=== PATIENT | female | born 1940 | race Caucasian/White ===

== ENCOUNTER 2021-01-23 11:46 | Inpatient (IN) | payer MEDICARE, SELFPAY ==
[2021-01-23] VITALS (11 sets, daily range): BP systolic 117–173; BP diastolic 53–108; PULSE 46–90; RESP 18–24; TEMP 36.7–39.6; O2SAT 88–95; BMI 27.8
--- NOTE | 2021-01-23 13:28 | XRR_ITS ---
PROCEDURE INFORMATION: Exam: XR Chest Exam date and time: 01/23/2021 1:28 PM Age: 80 years old Clinical indication: Cough and fever and other: Reduced breath sounds, hypoxia; Additional info: Reduced breath sounds, hypoxia, possible covid TECHNIQUE: Imaging protocol: XR of the chest. Views: 1 view. COMPARISON: No relevant prior studies available. FINDINGS: Lungs: Right basilar consolidation. Lungs are hyperinflated. Pleural spaces: Unremarkable. No pleural effusion. No pneumothorax. Heart/Mediastinum: Unremarkable. No cardiomegaly. Bones/joints: Unremarkable. XR/XR chest 1V portable [id number] IMPRESSION: Right basilar consolidation suspicious for pneumonia.
--- NOTE | 2021-01-23 14:01 | ECG_ITS ---
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 Measurements Intervals [place] Rate: 87 P: 52 MO: 171 QRS: -22 QRSD: 76 T: 57 QT: 333 QTc: 402 Interpretive Statements SINUS RHYTHM WITH FREQUENT SUPRAVENTRICULAR PREMATURE COMPLEXES BORDERLINE LEFT AXIS DEVIATION [QRS AXIS < -20] LOW QRS VOLTAGE IN PRECORDIAL LEADS [QRS DEFLECTION < 1.0 mV IN CHEST LEADS] No previous ECG available for comparison Electronically Signed On 01-23-2021 16:41:42 CDT by Luz Marina Hayes M.D. [id number]
[2021-01-23] MEDS: acetaminophen 325 mg Tablet 1000 MG PO (14:07)
[2021-01-23] MEDS: albuterol 8 gm MDI 2 PUFF INHALATION (14:14)
[2021-01-23 14:25] LABS: Basophils % 0.1 %; Hematocrit 42.7 % (37.0-47.0); Hemoglobin 13.7 g/dL (11.5-15.3); Lymphocytes # 0.7 10^3/uL (0.8-4.8); Lymphocytes % 8.3 %; Mean Corpuscular HGB Conc 32.1 g/dL (30.0-36.0); Mean Corpuscular Hemoglobin 29.9 pg (28.0-34.0); Mean Corpuscular Volume 93.2 fL (81-99); Mean Platelet Volume 10.3 fL (7.4-10.4); Monocytes # 0.7 10^3/uL (0.2-0.9); Monocytes % 8.3 %; Neutrophils # 6.87 10^3/uL (1.8-7.7); Neutrophils % 82.9 %; Nucleated Red Blood Cells % 0 %; Platelet Count 129 10^3/cmm (130-400); Red Blood Count 4.58 10^6/uL (4.1-5.3); Red Cell Distribution Width 13.5 % (12.1-15.1); White Blood Count 8.3 10^3/uL (4.0-10.0)
[2021-01-23 14:31] LABS: ABG PCO2 36.5 mmHg (35-45); ABG PH Result 7.51 (7.35-7.45); Alveolar-Arterial Oxygen Gradi 7.3 mmHg (5-10); Arterial Blood Gas Hematocrit 43.3 % (37-47); Base Excess ABG 5.7 mmol/L (-2.0-2.0); Blood Gas Allen Test Pos; Blood Gas Operator Identificat GD; Blood Gas Sample Site Radial, left; Blood Gas Sample Type Arterial; Carboxyhemoglobin 1.1 %THgb (0.4-20.1); HCO3 ABG 28.9 mmol/L (22-26); Ionized Calcium Level - ABG 1.2 mmol/L (1.1-1.4); Methemoglobin 1.1 % (0.4-1.5); Oxygen Device ROOM AIR; PO2 ABG 49.1 mmHg (80.0-100.0); Potassium Level - ABG 3.8 mmol/L (3.5-5.0); Total Hemoglobin 14.1 g/dL (12-16)
[2021-01-23 14:40] LABS: Lactic Sepsis W/Reflex 1.7 mmol/L (0.5-2.2)
[2021-01-23 14:40] LABS: Influenza A by IFA Negative (Negative); Influenza B by IFA Negative (Negative); SARS Covid-2 Antigen Positive (Negative)
[2021-01-23 14:43] LABS: Troponin(5th) Baseline 30 ng/L (0-10)
[2021-01-23 14:45] LABS: Slide Review Slide Review Perform
[2021-01-23 14:46] LABS: Bilirubin Urine 1+ (Negative); Blood Urine 3+ (Negative); Glucose Urine UA Norm (Normal); Ketones Urine 1+ (Negative); Leukocyte Esterase Urine Trace (Negative); Nitrate Urine Positive (Negative); Protein Urine 2+ (Negative); Specific Gravity, Urine 1.015 (1.005-1.030); Urine Appearance SL Hazy (CLEAR); Urine Color Yellow (Yellow); Urobilinogen Urine 1 mg/dL (Negative); pH Urine 5 (5-7)
[2021-01-23 14:47] LABS: Squamous Epithelial Cell Urine 0-4 /hpf (0-5); WBC Urine 0-4 /hpf (0-5)
[2021-01-23 14:48] LABS: Add Urine Culture? Yes; Bacteria Urine 3+ /hpf
[2021-01-23 14:51] LABS: Alanine Aminotransferase 11 U/L (0-33); Albumin Level 3.8 g/dL (3.5-5.2); Alkaline Phosphatase 59 IU/L (35-105); Blood Urea Nitrogen 15 mg/dL (8-23); C Reactive Protein 55.5 mg/L (0.0-4.9); Calcium 8.5 mg/dL (8.5-10.5); Carbon Dioxide 28 mmol/L (22-29); Chloride 97 mmol/L (98-107); Globulin 2.7 g/dL (1.3-4.6); Glucose 128 mg/dL (65-115); NT Pro B Type Natriuretic Pept 1061 pg/mL (0-450); Osmolality Calculated 286 mOsm/kg (285-295); Sodium 137 mmol/L (136-145); Total Bilirubin 0.7 mg/dL (0.15-1.2); Total Protein 6.5 g/dL (6.6-8.7)
[2021-01-23 14:53] LABS: Anion Gap 16.2 (5-19); Aspartate Amino Transferase 26 U/L (0-32); Potassium 4.2 mmol/L (3.5-5.1)
[2021-01-23 15:00] LABS: D Dimer 2.72 ug/mIFEU (0-0.59)
--- NOTE | 2021-01-23 15:12 | CTR_ITS ---
PROCEDURE INFORMATION: Exam: CTA Chest With Contrast Exam date and time: 01/23/2021 3:12 PM Age: 80 years old Clinical indication: Cough and shortness of breath; Additional info: Covid +. Pe? TECHNIQUE: Imaging protocol: Computed tomographic angiography of the chest with contrast. 3D rendering (Not supervised by radiologist): MIP and/or 3D reconstructed images were created by the technologist. Radiation optimization: All CT scans at this facility use at least one of these dose optimization techniques: automated exposure control; mA and/or kV adjustment per patient size (includes targeted exams where dose is matched to clinical indication); or iterative reconstruction. Contrast material: VISI 320; Contrast volume: 85 ml; Contrast route: INTRAVENOUS (IV); COMPARISON: CR XR chest 1V portable [id number] 01/23/2021 2:06 PM RADIATION DOSE METRICS: Total DLP (mGy-cm): 652.91 FINDINGS: Pulmonary arteries: Enlargement of the main pulmonary arteries measuring up to 3.2 cm bilaterally. Aorta: Unremarkable. No aortic aneurysm. No aortic dissection. Lungs: Patulous right basilar consolidation with air bronchograms. Subtle patulous ground-glass opacities in the right upper lobe. Peripheral pulmonary micro nodules scattered throughout the lungs suggestive of small airway infectious/inflammatory process. Pleural spaces: Unremarkable. No pneumothorax. No pleural effusion. Heart: Borderline cardiomegaly. Lymph nodes: Unremarkable. No enlarged lymph nodes. Bones/joints: Generalized osseous demineralization. Mild scoliosis of the lower thoracolumbar spine with associated degenerative changes. No acute fracture. Soft tissues: Partially visualized upper abdominal rectus diastasis/ventral hernia. CT/CT angio chest PE protcl [id number] IMPRESSION: 1. Negative for pulmonary embolism. Dilated main pulmonary arteries which while non-specific may be indicative of pulmonary hypertension. 2. Patulous right basilar consolidation consistent with COVID pneumonia. Radiation Dose CTDIVOL = (mGy): DLP = 652.91 (mGy-cm)
--- NOTE | 2021-01-23 16:01 | ECG_ITS ---
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 Measurements Intervals [place] Rate: 70 P: 39 SD: 163 QRS: -15 QRSD: 85 T: 46 QT: 384 QTc: 414 Interpretive Statements SINUS RHYTHM LOW QRS VOLTAGE IN PRECORDIAL LEADS [QRS DEFLECTION < 1.0 mV IN CHEST LEADS] Compared to ECG 01/23/2021 14:29:52 No significant changes Electronically Signed On 01-23-2021 16:46:22 CDT by Luz Marina Hayes M.D. [id number]
[2021-01-23] MEDS: dexamethasone 4 mg/mL INJ 6 MG IVP (16:17)
[2021-01-23] MEDS: levofloxacin-dextrose 5 % 750 MG/150 ML PREMIX 100 MG IV (16:17)
[2021-01-23 16:56] LABS: Troponin 5 2HR 32.45 ng/L (0-10); Troponin 5 2HR Delta 2.45 ABS# (0-10)
--- NOTE | 2021-01-23 16:58 | W.ED.COVID ---
HPI - COVID General: Chief Complaint: Fever Stated Complaint: cough, trouble breathing, fever Time Seen by Provider: 01/23/21 13:26 Triage information: Has fever, cough or shortness of breath. Exposure to COVID + person last 14 days History of Present Illness: HPI Narrative: The patient is a 80-year-old female who comes to the ER complaining of cough, fever, weakness and confusion. Multiple Covid positive family members. Symptoms started 4 days ago. She is satting in the upper 80s on room air and has a fever of 103.2 with slightly increased work of breathing on arrival. She is complaining of Covid symptoms. MD complaint: reported COVID exposure and has COVID symptoms COVID 19 common symptoms: positive fever(s), chills, cough, productive cough, dyspnea, fatigue, body aches, headache(s) and nausea; negative throat pain or nasal congestion COVID 19 other sytmptoms: positive requiring oxygen; negative chest pain COVID Results: SARS-CoV-2 Antigen (Rapid) Positive (Negative) H 01/23/21 13:46 01/23/21 Review of Systems General: Reports: 10 or more systems reviewed and unremarkable except in HPI and below Const: Reports: fever(s), chills, body aches and fatigue Eyes: Denies: change in vision, blurry vision or eye redness ENMT: Denies: throat pain, swelling of lips/tongue, ear or mastoid pain or nasal congestion Card: Denies: chest pain, palpitations, irregular heart rhythm, edema, dyspnea on exertion or orthopnea Resp: Reports: dyspnea and productive cough GI: Reports: nausea : Denies: flank pain, difficulty voiding, urinary frequency or urinary urgency Musc: Denies: neck pain, back pain, extremity pain, joint pain, joint redness, limited range of motion or muscle weakness Skin/Breast: Denies: rash, pruritus, erythema, skin pain or skin tenderness Neuro: Reports: headache(s) Psych: Denies: anxiety or depression Endo: Denies: polyuria All/Imm: Denies: urticaria, throat swelling or tongue swelling PFSH ED PFSH: Medical History Essential hypertension Incontinence Surgical History H/O knee surgery Family History Sister Alzheimer disease Father Heart disease Daughter Thyroid condition Social History (Updated 01/23/21 @ 18:26 by Alexsander Addison MD) Smoking and tobacco status: never smoked Alcohol intake: never Household members: family Marital status: / Current occupational status: retired Physical Exam Const: COMMON NORMALS: no acute distress, average body habitus, patient oriented x3, no limitations, healthy appearing, alert and well nourished GENERAL APPEARANCE: cooperative, comfortable, well kempt and well developed ORIENTATION/CONSCIOUSNESS: Yes awake, Yes oriented to person, Yes oriented to place and Yes oriented to time HENMT: COMMON NORMALS: normocephalic, external ears normal and Normal external nose present HEAD & SCALP: normal to inspection and normocephalic NOSE: Normal external nose present EXTERNAL EAR: Yes external ears normal MOUTH: Normal oral and palatal mucosa present THROAT: posterior oropharynx normal Eye: COMMON NORMALS: Equal, round and reactive pupils present and EOMs intact bilaterally GENERAL EYE: appearance normal, both eyes and all related structures PUPIL: Yes Equal, round and reactive pupils present Neck/C-Spine: COMMON NORMALS: full ROM, no lymphadenopathy, no meningeal signs and no JVD GENERAL: Yes normal visual inspection Lymph: LYMPHATIC: no lymphadenopathy noted Chest: COMMONS NORMALS: normal inspection of the chest and normal palpation of entire chest wall Resp: COMMON NORMALS: No retractions EFFORT & INSPECTION: Yes able to speak in complete sentences, Yes tachypneic and Yes uses accessory muscles AUSCULTATION: rhonchi right lower, wheezes and diminished lung sounds Cardio: COMMON NORMALS: no JVD, regular rate, regular rhythm, S1 normal heart sound present, S2 normal heart sound present and Peripheral pulses 2+ throughout RATE: regular rate RHYTHM: regular rhythm HEART SOUNDS: S1 normal heart sound present and S2 normal heart sound present PERIPHERAL PULSES: Peripheral pulses 2+ throughout GI: COMMON NORMALS: Normal to inspection, nondistended, normoactive bowel sounds present, Soft to palpation, non-tender and no masses INSPECTION: Yes normal to inspection PALPATION: Yes Soft to palpation : COMMON NORMALS: Yes no CVA tenderness BLADDER/KIDNEY EXAM: Yes no CVA tenderness Back/Pelvis: COMMON NORMALS: no CVA tenderness, thoracic and lumbar spine normal to inspection, no thoracic nor lumbar tenderness and thoraco-lumbar ROM normal Extremity: COMMON NORMALS: normal to inspection, full ROM, capillary refill normal, no joint enlargement and no pedal edema GENERAL: Yes normal exam except as noted Neuro: COMMON NORMALS: patient oriented x3, CN's II-XII intact bilaterally, moves all extremities, no focal motor deficits, no sensory deficits noted and gait normal SENSORIUM/ORIENTATION: Yes alert, Yes oriented to person, Yes oriented to place and Yes oriented to time MENINGEAL SIGNS: Yes no meningeal signs Psych: COMMON NORMALS: mental status grossly normal, Normal thought process present, cooperative, normal affect and speech normal APPEARANCE: Yes well kempt ATTITUDE: Yes calm SPEECH: Yes normal speech THOUGHT PROCESS: Normal thought process present Skin: COMMON NORMALS: no rashes or lesions noted GENERAL SKIN EXAM: no rashes or lesions noted Course Vital Signs: Vital signs: Vital Signs Temperature 98.0 F 01/23/21 21:00 Pulse Rate 68 01/23/21 21:19 Respiratory Rate 22 H 01/23/21 21:19 Blood Pressure 146/80 01/23/21 21:19 Pulse Oximetry 95 01/23/21 21:19 MDM - COVID MDM Narrative: Medical decision making narrative: The patient is an 80-year-old female who comes to the ER with Covid symptoms. She is did swab positive today for coronavirus. She has slightly increased work of breathing with reduced breath sounds, wheezes, and rhonchi in the right lower lobe. She is requiring 3 L oxygen to saturate in the 90s. She was satting in the upper 80s on room air on arrival.. CTA is negative for PE but does show right basilar Covid pneumonia. Discussed with Dr. Addison who accepts for admission. Lab Data: Labs: Lab Results 01/23/21 01/23/21 01/23/21 Range/Units 13:45 13:46 13:46 WBC (4.0-10.0) 10^3/ uL RBC (4.1-5.3) 10^6/u L Hgb (11.5-15.3) g/dL Hct (37.0-47.0) % MCV (81-99) fL MCH (28.0-34.0) pg MCHC (30.0-36.0) g/dL RDW (12.1-15.1) % Plt Count (130-400) 10^3/c mm MPV (7.4-10.4) fL Neut % (Auto) % Lymph % (Auto) % [place] % (Auto) % Eos % (Auto) % Baso % (Auto) % Neut # (Auto) (1.8-7.7) 10^3/u L Lymph # (Auto) (0.8-4.8) 10^3/u L [place] # (Auto) (0.2-0.9) 10^3/u L Eos # (Auto) (0.0-0.8) 10^3/u L Baso # (Auto) (0.0-0.1) 10^3/u L Nucleated RBC % (a uto) % Nucleated RBCs # /100WBC D-Dimer (0-0.59) ug/mIFE U Specimen Type Sample Site ABG pH (7.35-7.45) ABG pCO2 (35-45) mmHg ABG pO2 (80.0-100.0) mmH g ABG HCO3 (22-26) mmol/L ABG O2 Saturation ABG Base Excess (-2.0-2.0) mmol/ L Lio Test A-a O2 Gradient (5-10) mmHg Hematocrit (37-47) % Hgb O2 Saturation (95-100) % Carboxyhemoglobin (0.4-20.1) %THgb Methemoglobin (0.4-1.5) % Total Hemoglobin (12-16) g/dL Ionized Calcium (1.1-1.4) mmol/L O2 Delivery Device Bee Raiser ID Sodium (136-145) mmol/L Potassium (3.5-5.1) mmol/L Chloride (98-107) mmol/L Carbon Dioxide (22-29) mmol/L Anion Gap (5-19) BUN (8-23) mg/dL Creatinine (0.5-0.9) mg/dL GFR Calculation Glucose (65-115) mg/dL Calculated Osmolal ity (285-295) mOsm/k g Lactic Acid (0.5-2.2) mmol/L Calcium (8.5-10.5) mg/dL Total Bilirubin (0.15-1.2) mg/dL AST (0-32) U/L ALT (0-33) U/L Alkaline Phosphata se (35-105) IU/L Troponin T Baselin e (0-10) ng/L Troponin T 120 Min [place] (0-10) ng/L Delta Troponin T (0-10) ABS# C-Reactive Protein (0.0-4.9) mg/L NT-Pro-B Natriuret Pep (0-450) pg/mL Total Protein (6.6-8.7) g/dL Albumin (3.5-5.2) g/dL Globulin (1.3-4.6) g/dL Urine Color Yellow (Yellow) Urine Appearance Sl hazy (CLEAR) Urine pH 5 (5-7) Ur Specific Gravit y 1.015 (1.005-1.030) Urine Protein 2+ H (Negative) Urine Glucose (UA) Norm (Normal) Urine Ketones 1+ H (Negative) Urine Blood 3+ H (Negative) Urine Nitrate Positive H (Negative) Urine Bilirubin 1+ H (Negative) Urine Urobilinogen 1 H (Negative) mg/dL Ur Leukocyte Darleen ase Trace H (Negative) Urine RBC 5-10 H (0-2) /hpf Urine WBC 0-4 H (0-5) /hpf Ur Squamous Epith Cells 0-4 H (0-5) /hpf Amorphous Sediment Not Reportable Urine Bacteria 3+ H (NONE) /hpf Influenza Type A A g Negative (Negative) Influenza Type B A g Negative (Negative) SARS-CoV-2 Ag (Rap id) Positive H (Negative) 01/23/21 01/23/21 01/23/21 Range/Units 14:00 14:00 14:00 WBC 8.3 (4.0-10.0) 10^3/ uL RBC 4.58 (4.1-5.3) 10^6/u L Hgb 13.7 (11.5-15.3) g/dL Hct 42.7 (37.0-47.0) % MCV 93.2 (81-99) fL MCH 29.9 (28.0-34.0) pg MCHC 32.1 (30.0-36.0) g/dL RDW 13.5 (12.1-15.1) % Plt Count 129 L (130-400) 10^3/c mm MPV 10.3 (7.4-10.4) fL Neut % (Auto) 82.9 % Lymph % (Auto) 8.3 % [place] % (Auto) 8.3 % Eos % (Auto) 0.0 % Baso % (Auto) 0.1 % Neut # (Auto) 6.87 (1.8-7.7) 10^3/u L Lymph # (Auto) 0.7 L (0.8-4.8) 10^3/u L [place] # (Auto) 0.7 (0.2-0.9) 10^3/u L Eos # (Auto) 0.0 (0.0-0.8) 10^3/u L Baso # (Auto) 0.0 (0.0-0.1) 10^3/u L Nucleated RBC % (a uto) 0 % Nucleated RBCs # 0.0 /100WBC D-Dimer 2.72 H (0-0.59) ug/mIFE U Specimen Type Sample Site ABG pH (7.35-7.45) ABG pCO2 (35-45) mmHg ABG pO2 (80.0-100.0) mmH g ABG HCO3 (22-26) mmol/L ABG O2 Saturation ABG Base Excess (-2.0-2.0) mmol/ L Lio Test A-a O2 Gradient (5-10) mmHg Hematocrit (37-47) % Hgb O2 Saturation (95-100) % Carboxyhemoglobin (0.4-20.1) %THgb Methemoglobin (0.4-1.5) % Total Hemoglobin (12-16) g/dL Ionized Calcium (1.1-1.4) mmol/L O2 Delivery Device Bee Raiser ID Sodium 137 (136-145) mmol/L Potassium 4.2 (3.5-5.1) mmol/L Chloride 97 L (98-107) mmol/L Carbon Dioxide 28 (22-29) mmol/L Anion Gap 16.2 (5-19) BUN 15 (8-23) mg/dL Creatinine 1.0 H (0.5-0.9) mg/dL GFR Calculation Not Reportable Glucose 128 H (65-115) mg/dL Calculated Osmolal ity 286 (285-295) mOsm/k g Lactic Acid (0.5-2.2) mmol/L Calcium 8.5 (8.5-10.5) mg/dL Total Bilirubin 0.7 (0.15-1.2) mg/dL AST 26 (0-32) U/L ALT 11 (0-33) U/L Alkaline Phosphata se 59 (35-105) IU/L Troponin T Baselin e (0-10) ng/L Troponin T 120 Min [place] (0-10) ng/L Delta Troponin T (0-10) ABS# C-Reactive Protein 55.5 H (0.0-4.9) mg/L NT-Pro-B Natriuret Pep 1061 H (0-450) pg/mL Total Protein 6.5 L (6.6-8.7) g/dL Albumin 3.8 (3.5-5.2) g/dL Globulin 2.7 (1.3-4.6) g/dL Urine Color (Yellow) Urine Appearance (CLEAR) Urine pH (5-7) Ur Specific Gravit y (1.005-1.030) Urine Protein (Negative) Urine Glucose (UA) (Normal) Urine Ketones (Negative) Urine Blood (Negative) Urine Nitrate (Negative) Urine Bilirubin (Negative) Urine Urobilinogen (Negative) mg/dL Ur Leukocyte Darleen ase (Negative) Urine RBC (0-2) /hpf Urine WBC (0-5) /hpf Ur Squamous Epith Cells (0-5) /hpf Amorphous Sediment Urine Bacteria (NONE) /hpf Influenza Type A A g (Negative) Influenza Type B A g (Negative) SARS-CoV-2 Ag (Rap id) (Negative) 01/23/21 01/23/21 01/23/21 Range/Units 14:00 14:00 14:10 WBC (4.0-10.0) 10^3/ uL RBC (4.1-5.3) 10^6/u L Hgb (11.5-15.3) g/dL Hct (37.0-47.0) % MCV (81-99) fL MCH (28.0-34.0) pg MCHC (30.0-36.0) g/dL RDW (12.1-15.1) % Plt Count (130-400) 10^3/c mm MPV (7.4-10.4) fL Neut % (Auto) % Lymph % (Auto) % [place] % (Auto) % Eos % (Auto) % Baso % (Auto) % Neut # (Auto) (1.8-7.7) 10^3/u L Lymph # (Auto) (0.8-4.8) 10^3/u L [place] # (Auto) (0.2-0.9) 10^3/u L Eos # (Auto) (0.0-0.8) 10^3/u L Baso # (Auto) (0.0-0.1) 10^3/u L Nucleated RBC % (a uto) % Nucleated RBCs # /100WBC D-Dimer (0-0.59) ug/mIFE U Specimen Type Arterial Sample Site Radial, left ABG pH 7.51 H (7.35-7.45) ABG pCO2 36.5 (35-45) mmHg ABG pO2 49.1 L (80.0-100.0) mmH g ABG HCO3 28.9 H (22-26) mmol/L ABG O2 Saturation 89.0 ABG Base Excess 5.7 H (-2.0-2.0) mmol/ L Lio Test Pos A-a O2 Gradient 7.3 (5-10) mmHg Hematocrit 43.3 (37-47) % Hgb O2 Saturation 87.0 L (95-100) % Carboxyhemoglobin 1.1 (0.4-20.1) %THgb Methemoglobin 1.1 (0.4-1.5) % Total Hemoglobin 14.1 (12-16) g/dL Ionized Calcium 1.2 (1.1-1.4) mmol/L O2 Delivery Device Room air Bee Raiser ID Gd Sodium 137.0 (136-145) mmol/L Potassium 3.8 (3.5-5.1) mmol/L Chloride (98-107) mmol/L Carbon Dioxide (22-29) mmol/L Anion Gap (5-19) BUN (8-23) mg/dL Creatinine (0.5-0.9) mg/dL GFR Calculation Glucose 127.0 H (65-115) mg/dL Calculated Osmolal ity (285-295) mOsm/k g Lactic Acid 1.7 (0.5-2.2) mmol/L Calcium (8.5-10.5) mg/dL Total Bilirubin (0.15-1.2) mg/dL AST (0-32) U/L ALT (0-33) U/L Alkaline Phosphata se (35-105) IU/L Troponin T Baselin e 30 H (0-10) ng/L Troponin T 120 Min [place] (0-10) ng/L Delta Troponin T (0-10) ABS# C-Reactive Protein (0.0-4.9) mg/L NT-Pro-B Natriuret Pep (0-450) pg/mL Total Protein (6.6-8.7) g/dL Albumin (3.5-5.2) g/dL Globulin (1.3-4.6) g/dL Urine Color (Yellow) Urine Appearance (CLEAR) Urine pH (5-7) Ur Specific Gravit y (1.005-1.030) Urine Protein (Negative) Urine Glucose (UA) (Normal) Urine Ketones (Negative) Urine Blood (Negative) Urine Nitrate (Negative) Urine Bilirubin (Negative) Urine Urobilinogen (Negative) mg/dL Ur Leukocyte Darleen ase (Negative) Urine RBC (0-2) /hpf Urine WBC (0-5) /hpf Ur Squamous Epith Cells (0-5) /hpf Amorphous Sediment Urine Bacteria (NONE) /hpf Influenza Type A A g (Negative) Influenza Type B A g (Negative) SARS-CoV-2 Ag (Rap id) (Negative) 01/23/21 Range/Units 16:14 WBC (4.0-10.0) 10^3/ uL RBC (4.1-5.3) 10^6/u L Hgb (11.5-15.3) g/dL Hct (37.0-47.0) % MCV (81-99) fL MCH (28.0-34.0) pg MCHC (30.0-36.0) g/dL RDW (12.1-15.1) % Plt Count (130-400) 10^3/c mm MPV (7.4-10.4) fL Neut % (Auto) % Lymph % (Auto) % [place] % (Auto) % Eos % (Auto) % Baso % (Auto) % Neut # (Auto) (1.8-7.7) 10^3/u L Lymph # (Auto) (0.8-4.8) 10^3/u L [place] # (Auto) (0.2-0.9) 10^3/u L Eos # (Auto) (0.0-0.8) 10^3/u L Baso # (Auto) (0.0-0.1) 10^3/u L Nucleated RBC % (a uto) % Nucleated RBCs # /100WBC D-Dimer (0-0.59) ug/mIFE U Specimen Type Sample Site ABG pH (7.35-7.45) ABG pCO2 (35-45) mmHg ABG pO2 (80.0-100.0) mmH g ABG HCO3 (22-26) mmol/L ABG O2 Saturation ABG Base Excess (-2.0-2.0) mmol/ L Lio Test A-a O2 Gradient (5-10) mmHg Hematocrit (37-47) % Hgb O2 Saturation (95-100) % Carboxyhemoglobin (0.4-20.1) %THgb Methemoglobin (0.4-1.5) % Total Hemoglobin (12-16) g/dL Ionized Calcium (1.1-1.4) mmol/L O2 Delivery Device Bee Raiser ID Sodium (136-145) mmol/L Potassium (3.5-5.1) mmol/L Chloride (98-107) mmol/L Carbon Dioxide (22-29) mmol/L Anion Gap (5-19) BUN (8-23) mg/dL Creatinine (0.5-0.9) mg/dL GFR Calculation Glucose (65-115) mg/dL Calculated Osmolal ity (285-295) mOsm/k g Lactic Acid (0.5-2.2) mmol/L Calcium (8.5-10.5) mg/dL Total Bilirubin (0.15-1.2) mg/dL AST (0-32) U/L ALT (0-33) U/L Alkaline Phosphata se (35-105) IU/L Troponin T Baselin e (0-10) ng/L Troponin T 120 Min [place] 32.45 H (0-10) ng/L Delta Troponin T 2.45 (0-10) ABS# C-Reactive Protein (0.0-4.9) mg/L NT-Pro-B Natriuret Pep (0-450) pg/mL Total Protein (6.6-8.7) g/dL Albumin (3.5-5.2) g/dL Globulin (1.3-4.6) g/dL Urine Color (Yellow) Urine Appearance (CLEAR) Urine pH (5-7) Ur Specific Gravit y (1.005-1.030) Urine Protein (Negative) Urine Glucose (UA) (Normal) Urine Ketones (Negative) Urine Blood (Negative) Urine Nitrate (Negative) Urine Bilirubin (Negative) Urine Urobilinogen (Negative) mg/dL Ur Leukocyte Darleen ase (Negative) Urine RBC (0-2) /hpf Urine WBC (0-5) /hpf Ur Squamous Epith Cells (0-5) /hpf Amorphous Sediment Urine Bacteria (NONE) /hpf Influenza Type A A g (Negative) Influenza Type B A g (Negative) SARS-CoV-2 Ag (Rap id) (Negative) COVID Results: SARS-CoV-2 Antigen (Rapid) Positive (Negative) H 01/23/21 13:46 01/23/21 Discharge Plan Discharge Patient Disposition: Admitted As Inpatient Admit Provider: Alexsander Addison Clinical Impression: Pneumonia due to COVID-19 virus Condition: Stable Coding Level of Care Code ED Hose Inspector And Patcher for Jonathon Walker
[2021-01-23] MEDS: remdesivir 200 MG in sodium chloride 0.9% (100 ml) 100 ML 100 MG IV (18:20)
--- NOTE | 2021-01-23 18:24 | P.HP_ITS ---
Providers/Chief Complaint Primary Care Provider: Concepcion Moralez DO Chief Complaint: cough, trouble breathing, fever History of Present Illness Pleasant 80-year-old lady with history of HTN brought to the emergency department due to shortness of breath, cough, reports of possible confusion, on presentation noted requiring on 3 L of oxygen by nasal cannula, noted febrile, with saturation 88% on 2 L, noted positive for COVID-19, as well as with noted consolidation in right lower lobe on chest x-ray. She has not had her vaccine. Her daughter is currently ill with COVID. She normally lives with her granddaughter. Laboratory studies revealing thrombocytopenia, platelets 129, noted elevated D-dimer of 2.72. Creatinine 1. Baseline troponin 30, 2-hour troponin 32.4 5. NT proBNP 1061. Review of Systems Const: Reports: fever(s), chills, body aches and malaise Eyes: Denies: change in vision or eye redness ENMT: Denies: throat pain, oral sores or ear or mastoid pain Card: Denies: chest pain, edema, pre-syncope or dyspnea on exertion Resp: Reports: productive cough; Denies: dyspnea, change in phlegm color or hemoptysis GI: Denies: abdominal pain, nausea, vomiting, diarrhea, constipation, hematochezia or melena : Denies: flank pain, urinary frequency or hematuria Musc: Denies: back pain, joint swelling or joint redness Skin/Breast: Denies: rash, sores or new lesions Neuro: Denies: headache(s), numbness in extremities, weakness in extremities, dizziness, confusion or seizure-like activity Endo: Denies: polyuria or polydipsia Nii/Lymph: Denies: easy bleeding or purpura All/Imm: Denies: urticaria, throat swelling or tongue swelling Medications/Allergies Home Medications Medication Instructions Recorded Confirmed Last Taken Type docusate sodium 100 mg capsule 100 mg PO DAILY #30 cap 01/10/20 01/23/21 Unknown Rx latanoprost (PF) 0.005 % eye drops 1 drop OPHTHALMIC (EYE) .hs #7.5 ml 03/30/20 01/23/21 01/21/21 Rx oxybutynin chloride 10 mg 10 mg PO DAILY #90 tab 06/08/21 07/20/21 07/18/21 Rx tablet,extended release 24 hr potassium chloride 20 mEq 20 meq PO DAILY #90 tab 12/12/20 01/23/21 01/21/21 Rx tablet,extended release(part/cryst) furosemide 40 mg PO DAILY 01/23/21 01/23/21 Unknown History lisinopril 20 mg PO DAILY 01/23/21 01/23/21 01/21/21 History Allergies Allergy/AdvReac Type Severity Reaction Status Date / Time No Known Allergies Allergy Verified 01/20/20 09:56 PFSH Acute PFSH: Medical History Essential hypertension Incontinence Surgical History H/O knee surgery Family History Sister Alzheimer disease Father Heart disease Daughter Thyroid condition Social History (Updated 01/23/21 @ 18:26 by Alexsander Addison MD) Smoking and tobacco status: never smoked Alcohol intake: never Household members: family Marital status: / Current occupational status: retired Vitals/I&O/Wt Last Vital Signs Temp 103.2 F H 01/23/21 13:10 Pulse 78 01/23/21 18:15 Resp 20 H 01/23/21 18:15 BP 119/64 01/23/21 18:15 Pulse Ox 88 L 01/23/21 18:15 Weight last 48 hrs Weight 90.718 kg Physical Exam Const: COMMON NORMALS: no acute distress and patient oriented x3 HENMT: COMMON NORMALS: oropharynx normal Neck/C-Spine: COMMON NORMALS: no JVD Resp: COMMON NORMALS: normal respiratory effort and clear to auscultation bilaterally AUSCULTATION: clear to auscultation bilaterally Cardio: COMMON NORMALS: no JVD, regular rhythm, S1 normal heart sound present, S2 normal heart sound present and No murmurs present (Cardio) RHYTHM: regular rhythm HEART SOUNDS: S1 normal heart sound present and S2 normal heart sound present GI: COMMON NORMALS: Normal to inspection, nondistended, normoactive bowel sounds present, Soft to palpation and non-tender PALPATION: Yes Soft to palpation Extremity: COMMON NORMALS: no joint enlargement GENERAL: Yes edema (trace) Neuro: COMMON NORMALS: patient oriented x3 and moves all extremities Skin: COMMON NORMALS: no rashes or lesions noted GENERAL SKIN EXAM: no rashes or lesions noted Data : 01/23/21 14:00 01/23/21 14:00 Micro: Microbiology 01/23/21 14:30 Blood Culture - Preliminary Blood SPECIMEN COLLECTED 01/23/21 14:00 Blood Culture - Preliminary Blood SPECIMEN COLLECTED A&P Assessment and plan (1) COVID-19: Severe covid 19. O2 support. Remdesevir, decadron started. Albuterol as needed. Lovenox VTE prophylaxis. Famotidine PPx. Status: Acute (2) CAP (community acquired pneumonia): Levaquin. Sputum culture. Bacrterial antigens. Status: Acute (3) Elevated d-dimer: 2.72, 2/2 COVID 19. Recheck level. No unilateral swelling. Productive cough w yellow sputum. No hemoptysis. Lovenox VTE prophylaxis. Monitor for any signs of PE. Status: Acute (4) Troponin level elevated: Denies chest pain. Suspected demand ischemia. Complete series. Assess TTE. Status: Acute (5) Elevated brain natriuretic peptide (BNP) level: Suspect secondary to lung condition. Otherwise does not appear in HF. Petey es Hx. Continue home Lasix. Assess TTE. Status: Acute Additional A&P Information Reported confusion: possible acute encephalopathy. Appears perhaps resolved currently as she is A&Ox3 currently. Will continue to reassess. Thrombocytopenia: 129. Due to covid. Monitor PLT levels. HTN: monitor States daughter Ana Luisa has DPOA HC. Attestations Medical Necessity Statement*: Admission of over 2 midnights will be required for assessment and management of severe COVID 19 pneumonia, CAP, hypoxia, cytopenia. Coding Level of Care Code Acute [employer] for [facility] Fwd Diagnoses COVID-19 U07.1 CAP (community acquired pneumonia) J18.9 Elevated d-dimer R79.89 Troponin level elevated R77.8 Elevated brain natriuretic peptide (BNP) level R79.89
[2021-01-23] MEDS: iodixanol 320 mg/mL 100mL Btl IV (18:37)
--- NOTE | 2021-01-23 21:22 | PC.NURSE ---
jessica left for Namita, listed as contact regarding pt's rm number
[2021-01-23] MEDS: enoxaparin 40 mg/0.4 mL Syringe SUBCUT (21:40)
[2021-01-23] MEDS: famotidine 20 mg/2 mL INJ IVP (22:21)
[2021-01-24] VITALS (9 sets, daily range): BP systolic 127–160; BP diastolic 71–85; PULSE 62–89; RESP 16–19; TEMP 36.4–36.9; O2SAT 91–97
--- NOTE | 2021-01-24 05:00 | USCV_ITS ---
Sia Ballard Age: 80 Gender: F : 1940 Exam Date: 01/24/2021 06:39 Ordering Phys: Alexsander Addison MD Technologist: Exam Location: [facility] – [place] Indication: CHEST PAIN BP: 127 / 79 HR: 72 Rhythm: Sinus Technical Quality: Fair MEASUREMENTS (Male / Female) Normal Values 2D ECHO LV Diastolic Diameter PLAX 4.0 cm 4.2 - 5.9 / 3.9 - 5.3 cm LV Systolic Diameter PLAX 2.4 cm IVS Diastolic Thickness 1.3 cm 0.6 - 1.0 / 0.6 - 0.9 cm IVS Systolic Thickness 1.5 cm LVPW Diastolic Thickness 1.1 cm 0.6 - 1.0 / 0.6 - 0.9 cm LVPW Systolic Thickness 1.7 cm LVOT Diameter 2.1 cm LV Ejection Fraction 2D Teich 72.7 % LV Ejection Fraction MOD 2C 36.7 % LV Ejection Fraction 2C AL 35.0 % LA Diameter 3.4 cm LA Width 4.7 cm LA Height 5.9 cm RA Width 4.9 cm RA Height 5.0 cm M-MODE LV Diastolic Diameter MM 4.8 cm 4.2 - 5.9 / 3.9 - 5.3 cm LV Systolic Diameter MM 3.2 cm LV Ejection Fraction MM Teich 61.3 % IVS Diastolic Thickness MM 0.9 cm 0.6 - 1.0 / 0.6 - 0.9 cm IVS Systolic Thickness MM 1.5 cm LVPW Diastolic Thickness MM 1.3 cm 0.6 - 1.0 / 0.6 - 0.9 cm LVPW Systolic Thickness MM 1.8 cm RV Diastolic Diameter MM 1.4 cm DOPPLER AV Peak Velocity 158.0 cm/s LVOT Peak Velocity 147.0 cm/s AV Area Cont Eq vti 3.8 cm squared AV Area Cont Eq pk 3.1 cm squared MV Area PHT 2.2 cm squared Mitral E to A Ratio 0.7 MV E' Velocity 73.0 cm/s TR Peak Velocity 131.3 cm/s TR Peak Gradient 6.9 mmHg Right Atrial Pressure 3.0 mmHg Pulmonary Artery Systolic Pressu 9.9 mmHg PV Peak Velocity 87.0 cm/s FINDINGS Left Ventricle Normal left ventricular cavity size. Normal left ventricular systolic function. Moderate left ventricular hypertrophy. Left ventricular ejection fraction is estimated at 60 %. Grade I/IV diastolic dysfunction (abnormal relaxation filling pattern), normal to mildly elevated filling pressures. Right Ventricle The right ventricle is normal in size and function. Right Atrium The right atrium is normal in size. Left Atrium The left atrium is normal in size. Mitral Valve Moderately thickened mitral valve. Severe mitral annular calcification. No mitral valve stenosis. No mitral valve regurgitation. Aortic Valve Severe aortic valve calcification. No aortic valve stenosis. No aortic valve regurgitation. Tricuspid Valve Structurally normal tricuspid valve without significant stenosis or regurgitation. Pulmonary artery systolic pressure is normal. Pulmonic Valve Structurally normal pulmonic valve without significant stenosis. There is no pulmonic regurgitation. Pericardium Normal pericardium without effusion. Aorta Normal ascending aorta dimension. CONCLUSIONS 1-Normal left ventricular cavity size. Normal left ventricular systolic function. Moderate left ventricular hypertrophy. Left ventricular ejection fraction is estimated at 60 %. Grade I/IV diastolic dysfunction (abnormal relaxation filling pattern), normal to mildly elevated filling pressures. 2-Moderately thickened mitral valve. Severe mitral annular calcification. No mitral valve stenosis. No mitral valve regurgitation. 3-Severe aortic valve calcification. No aortic valve stenosis. No aortic valve regurgitation. 4-Structurally normal tricuspid valve without significant stenosis or regurgitation. Pulmonary artery systolic pressure is normal. 5-There is no pericardial effusion. 6-Pulmonary artery systolic pressure is within normal limits. 7-Right atrial pressure is around 5 mm of mercury. 8-There are no prior echocardiogram studies to compare. Darryn Beth MD (Electronically Signed) Final Date: 24 January 2021 19:22 S
[2021-01-24 06:12] LABS: Hematocrit 40.5 % (37.0-47.0); Hemoglobin 13.3 g/dL (11.5-15.3); Mean Corpuscular HGB Conc 32.8 g/dL (30.0-36.0); Mean Corpuscular Hemoglobin 30.4 pg (28.0-34.0); Mean Corpuscular Volume 92.5 fL (81-99); Mean Platelet Volume 10.4 fL (7.4-10.4); Platelet Count 120 10^3/cmm (130-400); Red Blood Count 4.38 10^6/uL (4.1-5.3); Red Cell Distribution Width 13.4 % (12.1-15.1); White Blood Count 11.6 10^3/uL (4.0-10.0)
[2021-01-24 06:31] LABS: Alanine Aminotransferase 14 U/L (0-33); Albumin Level 3.1 g/dL (3.5-5.2); Alkaline Phosphatase 56 IU/L (35-105); Anion Gap 13.1 (5-19); Aspartate Amino Transferase 31 U/L (0-32); Blood Urea Nitrogen 17 mg/dL (8-23); C Reactive Protein 119.4 mg/L (0.0-4.9); Calcium 8.4 mg/dL (8.5-10.5); Carbon Dioxide 29 mmol/L (22-29); Chloride 102 mmol/L (98-107); Globulin 2.8 g/dL (1.3-4.6); Glucose 123 mg/dL (65-115); Osmolality Calculated 293 mOsm/kg (285-295); Potassium 4.1 mmol/L (3.5-5.1); Sodium 140 mmol/L (136-145); Total Bilirubin 0.6 mg/dL (0.15-1.2); Total Protein 5.9 g/dL (6.6-8.7)
[2021-01-24 06:49] LABS: D Dimer 3.05 ug/mIFEU (0-0.59)
[2021-01-24 07:11] LABS: Slide Review Slide Review Perform
[2021-01-24 07:13] LABS: Absolute Segmented Neutrophil 4.4 10/cmm (1.6-7.1); Band Neutrophils Absolute 5.9 10^3/cmm (0.0-1.2); Lymphocytes 5 %; Monocytes Absolute 0.7 10^3/cmm (0.1-0.6); Segmented Neutrophils 38 %; Total Cells Counted 100 (0-100)
[2021-01-24 07:14] LABS: Absolute Neutrophil 10.3 10^3/cmm (1.4-6.5); Eosinophils 0 %; Lymphocytes Absolute 0.6 10^3/cmm (1.2-3.4); Platelet Estimate Normal (Normal)
[2021-01-24] MEDS: albuterol 8 gm MDI 2 PUFF INHALATION (08:54)
[2021-01-24] MEDS: docusate sodium 100 mg Capsule PO (10:14)
[2021-01-24] MEDS: FUROsemide 40 mg Tablet PO (10:14)
[2021-01-24] MEDS: oxybutynin 5 mg Tablet 10 MG PO (10:15)
[2021-01-24] MEDS: nystatin powder 15 gm Btl 1 APPLIC TOPICAL ×2 (10:20→18:17)
[2021-01-24] MEDS: famotidine 20 mg/2 mL INJ IVP ×2 (10:20→20:45)
[2021-01-24] MEDS: dexamethasone 4 mg/mL INJ 6 MG IVP (16:14)
[2021-01-24] MEDS: levofloxacin-dextrose 5 % 750 MG/150 ML PREMIX 100 MG IV (16:15)
[2021-01-24] MEDS: remdesivir 100 MG in sodium chloride 0.9% (100 ml) 100 ML IV (18:17)
--- NOTE | 2021-01-24 19:16 | P.PN_ITS ---
Subjective Subjective: Interval history: Today she is actually feeling a bit better. She is so far weaned off oxygen, saturating low 90s at rest. Discussed with her, however, regarding significant increase in CRP today up to 119. D-dimer also with rise up to 3.05. She denies chest pain or pressure. Vitals/I&O/Wt Last Vital Signs Temp 98.4 F 01/24/21 16:00 Pulse 82 01/24/21 16:00 Resp 18 01/24/21 16:00 BP 147/77 01/24/21 16:00 Pulse Ox 91 01/24/21 16:00 01/24/21 01/24/21 01/24/21 06:59 14:59 22:59 Intake Total 150 / 490 Balance 150 / 490 Weight last 48 hrs Weight 90.718 kg Physical Exam Const: COMMON NORMALS: no acute distress and patient oriented x3 HENMT: COMMON NORMALS: oropharynx normal Neck/C-Spine: COMMON NORMALS: no JVD Resp: COMMON NORMALS: normal respiratory effort and clear to auscultation bilaterally AUSCULTATION: clear to auscultation bilaterally Cardio: COMMON NORMALS: no JVD, regular rhythm, S1 normal heart sound present, S2 normal heart sound present and No murmurs present (Cardio) RHYTHM: regular rhythm HEART SOUNDS: S1 normal heart sound present and S2 normal heart sound present GI: COMMON NORMALS: Normal to inspection, nondistended, normoactive bowel sounds present, Soft to palpation and non-tender PALPATION: Yes Soft to palpation Extremity: COMMON NORMALS: no joint enlargement GENERAL: Yes edema (trace) Neuro: COMMON NORMALS: patient oriented x3 and moves all extremities Skin: COMMON NORMALS: no rashes or lesions noted GENERAL SKIN EXAM: no rashes or lesions noted Data : 01/24/21 05:50 01/24/21 05:50 Micro: Microbiology 01/23/21 14:30 Blood Culture - Preliminary Blood NEGATIVE TO DATE 01/23/21 14:00 Blood Culture - Preliminary Blood NEGATIVE TO DATE 01/23/21 22:00 Gram Stain - Final Sputum - Expectorated Sputum 01/23/21 22:00 Bacterial Antigens - Final Urine,Voided 01/23/21 13:45 Urine Culture - Preliminary Urine,Clean Catch Gram Negative Rods 01/23/21 22:00 Legionella Urinary Antigen - Final Urine,Voided A&P Assessment and plan (1) COVID-19: Severe COVID-19 pneumonia, requiring up to 3 L of oxygen at presentation. Oxygen requirement appears to be improving. So far weaning down to room air at rest saturating low 90s. Monitor oxygenation. For now continue treatment for severe COVID-19 given significant rise in CRP today up to 119. Also rising D- dimer up to 3.05. Continue Remdesevir, decadron. Albuterol as needed. Lovenox VTE prophylaxis. Famotidine PPx. As per discussion with her we will recheck inflammatory marker, D-dimer in the morning, continue to monitor oxygenation, if oxygenation remains good, and laboratory parameters stabilize or hopefully even improved, she may possibly be able to return home. She likes this plan. Status: Acute (2) CAP (community acquired pneumonia): Levaquin. Sputum culture. Bacrterial antigens. Status: Acute (3) UTI (urinary tract infection): More than 100,000 CFU gram-negative rods. Continue quinolone. Follow-up culture results. Perhaps contributing to encephalopathy reported prior to presentation. Status: Acute (4) Elevated d-dimer: Lovenox VTE prophylaxis. Monitor for any signs of PE. Status: Acute (5) Troponin level elevated: Denies chest pain. Suspected demand ischemia. Follow TTE. Status: Acute (6) Elevated brain natriuretic peptide (BNP) level: Suspect secondary to lung condition. Otherwise does not appear in HF. Denies Hx. Continue home Lasix. Assess TTE. Status: Acute Additional A&P Information Reported confusion: Resolved. Possible acute encephalopathy secondary to severe COVID-19 on presentation, pneumonia possibly also encephalopathy secondary to urinary tract infection. Appears perhaps resolved currently as she is A&Ox3 currently. Will continue to reassess. Thrombocytopenia: Mild worsening to 120. Due to covid. Monitor PLT levels. HTN: monitor States daughter Ana Luisa has DPOA HC. Attestations Medical Necessity Statement*: Continue admission for assessment management of COVID-19 pneumonia, superimposed bacterial CAP, UTI. Coding Level of Care Code Acute [employer] Hand for [facility] Fwd Diagnoses COVID-19 U07.1 CAP (community acquired pneumonia) J18.9 UTI (urinary tract infection) N39.0 Elevated d-dimer R79.89 Troponin level elevated R77.8 Elevated brain natriuretic peptide (BNP) level R79.89
[2021-01-24] MEDS: latanoprost 0.005% Op Soln 2.5 mL Btl 1 DROP EYE-BOTH (21:13)
[2021-01-24] MEDS: enoxaparin 40 mg/0.4 mL Syringe SUBCUT (21:13)
[2021-01-25] VITALS (8 sets, daily range): BP systolic 126–168; BP diastolic 74–91; PULSE 60–70; RESP 17–18; TEMP 36.5–36.8; O2SAT 91–93
[2021-01-25 06:04] LABS: Basophils % 0.1 %; Hematocrit 39.9 % (37.0-47.0); Hemoglobin 13.1 g/dL (11.5-15.3); Lymphocytes # 0.4 10^3/uL (0.8-4.8); Lymphocytes % 4.9 %; Mean Corpuscular HGB Conc 32.8 g/dL (30.0-36.0); Mean Corpuscular Volume 91.3 fL (81-99); Mean Platelet Volume 10.8 fL (7.4-10.4); Monocytes # 0.4 10^3/uL (0.2-0.9); Monocytes % 4.8 %; Neutrophils # 8.03 10^3/uL (1.8-7.7); Neutrophils % 89.9 %; Nucleated Red Blood Cells % 0 %; Platelet Count 142 10^3/cmm (130-400); Red Blood Count 4.37 10^6/uL (4.1-5.3); Red Cell Distribution Width 13.2 % (12.1-15.1); White Blood Count 8.9 10^3/uL (4.0-10.0)
[2021-01-25 06:22] LABS: Alanine Aminotransferase 22 U/L (0-33); Albumin Level 2.9 g/dL (3.5-5.2); Alkaline Phosphatase 51 IU/L (35-105); Anion Gap 11.9 (5-19); Aspartate Amino Transferase 39 U/L (0-32); Blood Urea Nitrogen 23 mg/dL (8-23); C Reactive Protein 98.3 mg/L (0.0-4.9); Calcium 8.4 mg/dL (8.5-10.5); Carbon Dioxide 29 mmol/L (22-29); Chloride 102 mmol/L (98-107); Globulin 2.9 g/dL (1.3-4.6); Glucose 126 mg/dL (65-115); Osmolality Calculated 293 mOsm/kg (285-295); Potassium 3.9 mmol/L (3.5-5.1); Sodium 139 mmol/L (136-145); Total Bilirubin 0.6 mg/dL (0.15-1.2); Total Protein 5.8 g/dL (6.6-8.7)
[2021-01-25 06:25] LABS: D Dimer 2.04 ug/mIFEU (0-0.59)
[2021-01-25] MEDS: docusate sodium 100 mg Capsule PO (09:15)
[2021-01-25] MEDS: oxybutynin 5 mg Tablet 10 MG PO (09:15)
[2021-01-25] MEDS: famotidine 20 mg/2 mL INJ IVP (09:15)
[2021-01-25] MEDS: FUROsemide 40 mg Tablet PO (09:15)
[2021-01-25] MEDS: nystatin powder 15 gm Btl 1 APPLIC TOPICAL (09:17)
--- NOTE | 2021-01-25 15:42 | P.DS_ITS ---
Discharge Providers Date of Admission: 01/23/21 17:03 Date of Discharge: January 25, 2021 Attending Provider at Admission: Alexsander Addison Attending Provider at Discharge: Alexsander Addison Primary Care Provider: Concepcion Moralez DO Diagnoses at Discharge Discharge Diagnosis (1) COVID-19: Status: Acute (2) CAP (community acquired pneumonia): Status: Acute (3) UTI (urinary tract infection): Status: Acute (4) Elevated d-dimer: Status: Acute (5) Troponin level elevated: Status: Acute (6) Elevated brain natriuretic peptide (BNP) level: Status: Acute Reason for Visit Reason for Visit: cough, trouble breathing, fever Hospital Course Hospital Course Very pleasant 80-year-old lady with history of hypertension, who has not previously received vaccination for COVID-19 was admitted for assessment of management after presenting with shortness of breath, cough, reports of possible confusion, noted requiring 3 L of oxygen at presentation by nasal cannula. On presentation she tested positive for COVID-19, found to be in severe COVID-19 pneumonia, also with superimposed bacterial pneumonia with focal infiltrate in right lower lobe. Urinalysis also suggestive of possible UTI, subsequently growing more than 100,000 CFU pansensitive E. coli. D-dimer noted elevated at 2.72. Also noted thrombocytopenia 129. Both secondary to acute COVID-19. CT angiogram of the chest without suggestion of pulmonary embolism. Dilated main pulmonary arteries, nonspecific, but could suggest pulmonary hypertension. Patulous right basilar consolidation consistent with Covid pneumonia. Noted troponin elevation 30-32.45-27.7. Without any chest pain. Not suggestive of acute NV. With NT proBNP elevated at 1061, although without signs of acute congestive heart failure, suspected related to acute pulmonary illness. Closer assessed with TTE which showed normal ejection fraction, grade 1 diastolic dysfunction. Moderately thickened mitral valve. Severe aortic calcification. Normal pulmonary artery systolic pressure. She remained chest pain-free. She was initially treated with remdesivir, Decadron 4 severe COVID-19 pneumonia, as well as albuterol as needed, oxygen support. Also with Levaquin for superimposed bacterial community-acquired pneumonia with focal right lower lobe infiltrate, as well as for the urinary tract infection. She was continued on her usual dose of Lasix. Her condition improved quite quickly. She weaned off oxygen, and has remained on room air. She is feeling much better. She is awake, alert, oriented x3, and with good insight into her condition. Her inflammatory markers were noted initially rising up on 01/25, but today with decrease in CRP from 119-98. D-dimer with decreased from 3.05-2.04. Subjectively she is feeling much better. She has getting up in her room. She feels very good about returning home where she lives with her granddaughter who currently also has COVID-19. On home oxygen evaluation she does not qualify for any oxygen. We discussed with her, she will complete antibiotic course for UTI, community- acquired pneumonia with Levaquin. 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 She knows to seek medical attention in case of any concerning changes in her condition while recovering from acute COVID-19 and the additional comorbidities. She is considering getting vaccination for COVID-19 to help reduce chances of cherelle the infection again in the future. Please discuss with her again in office. Although her symptoms and cardiac studies in the hospital were not indicative of acute NV, with current troponin elevation suspected secondary to demand ischemia, additional assessment for coronary disease with history of hypertension may be beneficial given some troponin abnormality, and may be obtained with nonemergent stress testing after she recovers from acute illness. Consider additional assessment for risk factors of coronary disease, optimization of hypertension, assessment of cholesterol among other risks if not done recently. Physical Exam Const: COMMON NORMALS: no acute distress, patient oriented x3 and alert GENERAL APPEARANCE: cooperative and comfortable ORIENTATION/CONSCIOUSNESS: Yes awake OTHER: Sitting up in chair. Pleasant, conversant. Reports she is feeling very well. Feels good about returning home. HENMT: COMMON NORMALS: oropharynx normal Neck/C-Spine: COMMON NORMALS: no JVD Resp: COMMON NORMALS: normal respiratory effort and clear to auscultation bilaterally AUSCULTATION: clear to auscultation bilaterally Cardio: COMMON NORMALS: no JVD, regular rhythm, S1 normal heart sound present, S2 normal heart sound present and No murmurs present (Cardio) RHYTHM: regular rhythm HEART SOUNDS: S1 normal heart sound present and S2 normal heart sound present GI: COMMON NORMALS: Normal to inspection, nondistended, normoactive bowel sounds present, Soft to palpation and non-tender PALPATION: Yes Soft to palpation Extremity: COMMON NORMALS: no joint enlargement and no pedal edema Neuro: COMMON NORMALS: patient oriented x3 and moves all extremities SENSORIUM/ORIENTATION: Yes alert Skin: COMMON NORMALS: no rashes or lesions noted GENERAL SKIN EXAM: no rashes or lesions noted Discharge Data Data Completed and Pending: Completed Studies During Hospitalization Category Date Time Status CT angio chest PE protcl [id number] Stat Cat Scan 01/23/21 15:12 Completed XR chest 1V stella ble [id number] Stat Exams 01/23/21 13:28 Completed CV. echo complete * [id number] Routine Ultrasound 01/24/21 05:00 Completed Pending at discharge Category Date Time Status Blood Culture Sta t Lab 01/23/21 14:30 Results Complete Blood Co unt w/Auto AM LABS Lab 01/26/21 04:00 Ordered Complete Blood Co unt w/Auto AM LABS Lab 01/26/21 04:00 Ordered Comprehensive Met abolic Panel AM LA BS Lab 01/26/21 04:00 Ordered Comprehensive Met abolic Panel AM LA BS Lab 01/26/21 04:00 Ordered Sputum Culture an d Gram Stain [facility] 01/23/21 22:00 Results Labs from last 24 hours 01/25/21 01/25/21 01/25/21 05:35 05:35 05:35 WBC 8.9 RBC 4.37 Hgb 13.1 Hct 39.9 MCV 91.3 MCH 30.0 MCHC 32.8 RDW 13.2 Plt Count 142 MPV 10.8 H Neut % (Auto) 89.9 Lymph % (Auto) 4.9 Russell % (Auto) 4.8 Eos % (Auto) 0.0 Baso % (Auto) 0.1 Neut # (Auto) 8.03 H Lymph # (Auto) 0.4 L Russell # (Auto) 0.4 Eos # (Auto) 0.0 Baso # (Auto) 0.0 Nucleated RBC % (a uto) 0 Nucleated RBCs # 0.0 D-Dimer 2.04 H Sodium 139 Potassium 3.9 Chloride 102 Carbon Dioxide 29 Anion Gap 11.9 BUN 23 Creatinine 0.8 GFR Calculation Not Reportable Glucose 126 H Calculated Osmolal ity 293 Calcium 8.4 L Total Bilirubin 0.6 AST 39 H ALT 22 Alkaline Phosphata se 51 C-Reactive Protein 98.3 H Total Protein 5.8 L Albumin 2.9 L Globulin 2.9 Vitals: Last Vital Signs Temp 98.2 F 01/25/21 15:41 Pulse 63 01/25/21 15:41 Resp 18 01/25/21 15:41 BP 132/89 01/25/21 15:41 Pulse Ox 92 01/25/21 15:41 Discharge Plan Discharge Patient Disposition: Home Condition: Stable Prescriptions: New Xarelto 10 mg tablet 10 mg PO DAILY Qty: 21 RF: 0 levofloxacin 750 mg tablet 750 mg PO DAILY 5 Days Qty: 5 RF: 0 nystatin 100,000 unit/gram cream 1 applic topical BID 14 Days Qty: 15 RF: 1 Continued docusate sodium [Colace] 100 mg capsule 100 mg PO DAILY Qty: 30 RF: 3 latanoprost (PF) 0.005 % drops 1 drop ophthalmic (eye) .hs Qty: 7.5 RF: 0 oxybutynin chloride 10 mg tablet extended release 24hr 10 mg PO DAILY Qty: 90 RF: 0 potassium chloride [Klor-Con M20] 20 mEq tablet,ER particles/crystals 20 meq PO DAILY Qty: 90 RF: 0 furosemide 40 mg tablet 40 mg PO DAILY RF: 0 lisinopril 20 mg tablet 20 mg PO DAILY RF: 0 Discharge Orders: Discharge Order (Routine); Ordered 01/25/21 Ordered By: Alexsander Addison Referrals: Jose Daniel Soto FNP [Nurse Practitioner] - 2 weeks (Please call your doctor to set up an appointment Televisit in 4-7 days if possible. ) Discharge Diet: Advance as tolerated Discharge Activity: Increase activity as tolerated Patient Instructions: Levofloxacin (By mouth), Rivaroxaban (By mouth), Viral Pn eumonia (GEN), Urinary Tract Infection in Women (GEN), Community-acquired Pneumonia (GEN) Activity Restrictions/Additional Instructions: Please seek medical attention in case you are having any severe shortness of breath, severe tiredness, any chest pain, fainting, or any other concerning symptoms. Please note due to elevated risk of blood clots associated with COVID-19, and as you have also told us regarding history of thrombophlebitis you are additionally provided as per our discussion with extended prophylaxis for venous thrombosis with Xarelto. Please note this medication increases your risk of bleeding. Please avoid any injury. If you note any bleeding discontinue the medication and seek medical attention. Please complete antibiotic course as in addition to COVID-19 infection you are also noted to have superimposed bacterial pneumonia which is known to happen as a complication. As discussed this will be treated with Levaquin, which will also cover you for the urinary tract infection with E. coli found in your urine. When following up with your primary doctor, consider follow-up chest x-ray imaging in 6-8 weeks to confirm resolution of pneumonia. Please seek vaccination for COVID-19 to help reduce chances of acquiring COVID- 19 infection again. Please continue isolation until 02/05 to prevent spreading the infection at which point if you are having no further fever, no headache, nausea, vomiting, muscle aches, chills, and improving cough, isolation may be discontinued. Once he recovered from acute illness, discussed also with your primary provider referral for additional assessment by stress testing. Moderate elevation of high-sensitivity troponin T noted 30-32-20 7 ng/L, and although not suggestive of acute heart attack, may raise concern for underlying/developing coronary artery disease. This may benefit from additional risk stratification with stress testing on nonemergent basis. Please discuss with your primary provider. Discussed closer assessment of risk factors of coronary disease including assessment of cholesterol level if not done recently. Continue to optimize control of hypertension. Discharge Attestations Time Spent in Discharge Care*: greater than 30 min Quality Metrics Clinical Quality Measures During this hospital stay, did patient experience: None Coding Level of Care Code Acute [facility] note Diagnoses COVID-19 U07.1 CAP (community acquired pneumonia) J18.9 UTI (urinary tract infection) N39.0 Elevated d-dimer R79.89 Troponin level elevated R77.8 Elevated brain natriuretic peptide (BNP) level R79.89
[2021-01-25] MEDS: dexamethasone 4 mg/mL INJ 6 MG IVP (16:00)
[2021-01-25] MEDS: levofloxacin-dextrose 5 % 750 MG/150 ML PREMIX 100 MG IV (16:00)
== END 2021-01-25 17:58 | disposition home or self-care (01) | DRG 177 ==
LOC: ER 18:05 → MEDSURG 20:25
PROVIDERS: Admitting Provider Internal Medicine; Emergency Provider Family Medicine; PCP Family Medicine; Visit Provider Internal Medicine
DX: U07.1 COVID-19 (principal); J12.82 Pneumonia due to coronavirus disease 2019; J15.9 Unspecified bacterial pneumonia; N39.0 Urinary tract infection, site not specified; G93.40 Encephalopathy, unspecified; I24.8 Other forms of acute ischemic heart disease; B96.20 Unspecified Escherichia coli [E. coli] as the cause of diseases classified elsewhere; I10 Essential (primary) hypertension; R79.1 Abnormal coagulation profile; R79.89 Other specified abnormal findings of blood chemistry; D69.6 Thrombocytopenia, unspecified; Z86.718 Personal history of other venous thrombosis and embolism
CPT/HCPCS: 36415; 36600; 71045; 71275; 80051; 80053; 81001; 82330; 82805; 83605; 83880; 84484; 85007; 85025; 85378; 86140; 86403; 87040; 87070; 87077; 87086; 87186; 87205; 87426; 87449; 87804; 93005; 93306; 94640; 94664; 96365; 96367; 96372; 96375; 99285; J1100; J1650; J1956; J3490; J3535; Q9967

== ENCOUNTER 2021-01-27 19:51 | Inpatient (IN) | payer MEDICARE, SELFPAY ==
[2021-01-27 20:09] VITALS: BP 165/85; PULSE 81; RESP 20; TEMP 36.8; O2SAT 85; BMI 27.2
--- NOTE | 2021-01-27 21:03 | ECG_ITS ---
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 Measurements Intervals [place] Rate: 68 P: 50 NE: 168 QRS: 1 QRSD: 118 T: 60 QT: 381 QTc: 408 Interpretive Statements SINUS RHYTHM MODERATE INTRAVENTRICULAR CONDUCTION DELAY [110+ ms QRS DURATION] Compared to ECG 01/23/2021 15:57:08 Intraventricular conduction delay now present Electronically Signed On 01-28-2021 18:14:19 CDT by Luz Marina Hayes M.D. [id number]
--- NOTE | 2021-01-27 21:03 | XRR_ITS ---
PROCEDURE INFORMATION: Exam: XR Chest Exam date and time: 01/27/2021 9:03 PM Age: 80 years old Clinical indication: Dyspnea; Additional info: SOB TECHNIQUE: Imaging protocol: XR of the chest. Views: 1 view. COMPARISON: CR XR chest 1V portable [id number] 01/23/2021 2:06 PM FINDINGS: Lungs: There are increased interstitial opacity seen in the lower hemithoraces bilaterally with some consolidation seen in the right lung base, findings compatible with interstitial pneumonia. Pleural spaces: Unremarkable. No pleural effusion. No pneumothorax. Heart/Mediastinum: Unremarkable. No cardiomegaly. Bones/joints: Unremarkable. XR/XR chest 1V portable [id number] IMPRESSION: Bilateral increased interstitial markings in the lower hemithoraces and consolidation seen in the right lung base compatible with a bilateral interstitial pneumonia.
[2021-01-27 23:27] LABS: D Dimer 1.88 ug/mIFEU (0-0.59)
[2021-01-27 23:36] LABS: Lactic Sepsis W/Reflex 1.1 mmol/L (0.5-2.2)
--- NOTE | 2021-01-27 23:37 | ED_ITS ---
Documented by User: Leonard Hernandes MD, MSM 01/28/21 11:30 HPI - COVID General: Chief Complaint: COVID symptoms Stated Complaint: COVID+:FATIGUE, TREMORS, SHIVERING, CONFUSION Time Seen by Provider: 01/27/21 21:37 Source: patient, RN notes reviewed and old records reviewed Mode of arrival: ambulatory Limitations: altered mental status Triage information: Has fever, cough or shortness of breath . Exposure to COVID + person last 14 days History of Present Illness: HPI Narrative: This 80-year-old female patient pr esents to the emergency department with confusion, significant fatigue, and generalized weakness. Because of her confusion she is unable to give me proper history. She tells me she was tested for COVID-19 on the of this month, however she cannot tell me where the test was done. Looking through her chart she tested positive for COVID-19 4 days ago in this facility and was admitted to the hospital and discharged 2 days ago. She is unable to tell me other symptoms due to her clinical status. She was noted to be hypoxic with oxygen saturation 85% on room air. complaint: known COVID positive Prior covid testing: yes, results known Prior testing date: 01/23/21 COVID 19 common symptoms: positive fever(s), chills, cough, dyspnea and body aches COVID 19 other sytmptoms: positive requiring oxygen COVID Results: SARS-CoV-2 Antigen (Rapid) Positive (Negative) H 01/27/21 23:45 01/27/21 Review of Systems General: Reports: ROS unobtainable due to mental status Const: Reports: fever(s), chills and body aches Resp: Reports: dyspnea PFSH ED PFSH: Medical History Elevated brain natriuretic peptide (BNP) level Essential hypertension Incontinence Troponin level elevated Surgical History H/O knee surgery Family History Sister Alzheimer disease Father Heart disease Daughter Thyroid condition Social History Smoking and tobacco status: never smoked Alcohol intake: never Household members: family Marital status: / Current occupational status: retired Physical Exam Const: COMMON NORMALS: no acute distress, average body habitus, no limitations, healthy appearing, alert and well nourished HENMT: COMMON NORMALS: normocephalic, atraumatic and moist oral mucous me mbranes HEAD & SCALP: normocephalic and atraumatic Eye: COMMON NORMALS: Equal, round and reactive pupils present, EOMs intact bilaterally, conjunctivae normal and no scleral icterus CONJUNCTIVA: Yes conjunctivae normal PUPIL: Yes Equal, round and reactive pupils present Neck/C-Spine: COMMON NORMALS: no meningeal signs and no JVD Resp: COMMON NORMALS: normal respiratory effort, No retractions, No use of accessory muscles, clear to auscultation bilaterally and percussion normal AUSCULTATION: clear to auscultation bilaterally PERCUSSION: percussion normal Cardio: COMMON NORMALS: no JVD, regular rate, regular rhythm, S1 normal heart sound present, S2 normal heart sound present, No gallops present (Cardio), No clicks present (Cardio), No murmurs present (Cardio), No rub (Cardio) and Peripheral pulses 2+ throughout RATE: regular rate RHYTHM: regular rhythm HEART SOUNDS: S1 normal heart sound present and S2 normal heart sound present PERIPHERAL PULSES: Peripheral pulses 2+ throughout GI: COMMON NORMALS: Normal to inspection, nondistended, normoactive bowel sounds present, Soft to palpation, non-tender, No hepatosplenomegaly present, no masses and no bruits PALPATION: Yes Soft to palpation and Yes No hepatosplenomegaly present Extremity: COMMON NORMALS: normal to inspection, full ROM, capillary refill normal, no calf tenderness and no pedal edema Neuro: SENSORIUM/ORIENTATION: Yes alert, Yes Orientation impaired and Yes fluctuating sensorium MENINGEAL SIGNS: Yes no meningeal signs Skin: COMMON NORMALS: no rashes or lesions noted, no wounds, turgor normal, no jaundice, no petechiae and no mottling GENERAL SKIN EXAM: no rashes or lesio ns noted and turgor normal Course Vital Signs: Vital signs: Vital Signs Temperature 98.3 F 01/28/21 08:00 Pulse Rate 69 01/28/21 08:00 Respiratory Rate 17 07/25/21 08:00 Blood Pressure 158/95 01/28/21 08:00 Pulse Oximetry 91 01/28/21 08:00 MDM - COVID MDM Narrative: Medical decision making narrative: patient signed over to Dr. Mares to assume care. This is an 80-year-old female with Covid who was recently discharged from this facility. She comes in today and she is obviously very confused. She is also hypoxic. Laboratory work is still pending but I think regardless she will likely need to be admitted because she is confused and I am not sure she can care for herself at this time. Lab Data: Labs: Lab Results 01/27/21 01/27/21 01/27/21 Range/Units 22:31 22:31 22:31 WBC Cancelled Corrected WBC Cancelled RBC Cancelled Hgb Cancelled Hct Cancelled MCV Cancelled MCH Cancelled MCHC Cancelled RDW Cancelled Plt Count Cancelled MPV Cancelled Gran % Cancelled Neut % (Auto) Cancelled Lymph % (Auto) Cancelled [place] % (Auto) Cancelled Eos % (Auto) Cancelled Baso % (Auto) Cancelled Neut # (Auto) Cancelled Lymph # (Auto) Cancelled [place] # (Auto) Cancelled Eos # (Auto) Cancelled Baso # (Auto) Cancelled Absolute Gran (aut o) Cancelled Nucleated RBC % (a uto) Cancelled Nucleated RBCs # Cancelled D-Dimer 1.88 H (0-0.59) ug/mIFE U Sodium (136-145) mmol/L Potassium (3.5-5.1) mmol/L Chloride (98-107) mmol/L Carbon Dioxide (22-29) mmol/L Anion Gap (5-19) BUN (8-23) mg/dL Creatinine (0.5-0.9) mg/dL GFR Calculation Glucose (65-115) mg/dL Calculated Osmolal ity (285-295) mOsm/k g Lactic Acid 1.1 (0.5-2.2) mmol/L Calcium (8.5-10.5) mg/dL Total Bilirubin (0.15-1.2) mg/dL AST (0-32) U/L ALT (0-33) U/L Alkaline Phosphata se (35-105) IU/L C-Reactive Protein (0.0-4.9) mg/L NT-Pro-B Natriuret Pep (0-450) pg/mL Total Protein (6.6-8.7) g/dL Albumin (3.5-5.2) g/dL Globulin (1.3-4.6) g/dL SARS-CoV-2 Ag (Rap id) (Negative) 01/27/21 01/27/21 01/28/21 Range/Units 23:00 23:45 01:40 WBC 5.5 Corrected WBC RBC 4.88 Hgb 14.4 Hct 45.3 MCV 92.8 MCH 29.5 MCHC 31.8 RDW 13.4 Plt Count 189 MPV 10.2 Gran % Neut % (Auto) 70.6 Lymph % (Auto) 10.0 [place] % (Auto) 14.6 Eos % (Auto) 0.0 Baso % (Auto) 0.4 Neut # (Auto) 3.88 Lymph # (Auto) 0.6 L [place] # (Auto) 0.8 Eos # (Auto) 0.0 Baso # (Auto) 0.0 Absolute Gran (aut o) Nucleated RBC % (a uto) 0 Nucleated RBCs # 0.0 D-Dimer (0-0.59) ug/mIFE U Sodium 137 (136-145) mmol/L Potassium 4.0 (3.5-5.1) mmol/L Chloride 100 (98-107) mmol/L Carbon Dioxide 28 (22-29) mmol/L Anion Gap 13.0 (5-19) BUN 22 (8-23) mg/dL Creatinine 0.7 (0.5-0.9) mg/dL GFR Calculation Not Reportable Glucose 99 (65-115) mg/dL Calculated Osmolal ity 287 (285-295) mOsm/k g Lactic Acid (0.5-2.2) mmol/L Calcium 8.6 (8.5-10.5) mg/dL Total Bilirubin 0.7 (0.15-1.2) mg/dL AST 23 (0-32) U/L ALT 15 (0-33) U/L Alkaline Phosphata se 47 (35-105) IU/L C-Reactive Protein 38.9 H (0.0-4.9) mg/L NT-Pro-B Natriuret Pep 282 (0-450) pg/mL Total Protein 6.0 L (6.6-8.7) g/dL Albumin 3.0 L (3.5-5.2) g/dL Globulin 3.0 (1.3-4.6) g/dL SARS-CoV-2 Ag (Rap id) Positive H (Negative) EKG Data: EKG 1: Attestation: I personally reviewed and interpreted this EKG as follows: EKG interpretation date: 01/27/21 EKG interpretation time: 23:30 Prior EKG tracings: available for review Interpretation: Sinus rhythm. Heart rate 68 bpm. Moderate intraventricular conduction delay. No ST changes. COVID Results: SARS-CoV-2 Antigen (Rapid) Positive (Negative) H 01/27/21 23:45 01/27/21 Discharge Plan Discharge Patient Disposition: Admitted As Inpatient Admit Provider: Brett George Clinical Impression: COVID-19, AMS (altered mental status) Condition: Stable Coding Level of Care Code ED Confectionery Drops Machine Operator for Chg Fwd Exam Comprehensive Documented by User: Hany Mares MD 01/28/21 03:31 HPI - COVID General: Chief Complaint: COVID symptoms Stated Complaint: COVID+:FATIGUE, TREMORS, SHIVERING, CONFUSION Time Seen by Provider: 01/27/21 21:37 COVID Results: SARS-CoV-2 Antigen (Rapid) Positive (Negative) H 01/27/21 23:45 01/27/21 [facility] ED PFSH: Medical History Elevated brain natriuretic peptide (BNP) level Essential hypertension Incontinence Troponin level elevated Surgical History H/O knee surgery Family History Sister Alzheimer disease Father Heart disease Daughter Thyroid condition Social History Smoking and tobacco status: never smoked Alcohol intake: never Household members: family Marital status: / Current occupational status: retired Course Vital Signs: Vital signs: Vital Signs Temperature 98.3 F 01/28/21 08:00 Pulse Rate 69 01/28/21 08:00 Respiratory Rate 17 01/28/21 08:00 Blood Pressure 158/95 01/28/21 08:00 Pulse Oximetry 91 01/28/21 08:00 MDM - COVID MDM Narrative: Medical decision making narrative: Sia presents here with Covid pneumonia along with altered mental status. She is having worsening weakness as well. I took patient over from Dr. Hernandes blood work here is normal. I spoke to the hospitalist and will admit she is requiring oxygen and is confused and unable to take care of her self. Lab Data: Labs: Lab Results 01/27/21 01/27/21 01/27/21 Range/Units 22:31 22:31 22:31 WBC Cancelled Corrected WBC Cancelled RBC Cancelled Hgb Cancelled Hct Cancelled MCV Cancelled MCH Cancelled MCHC Cancelled RDW Cancelled Plt Count Cancelled MPV Cancelled Gran % Cancelled Neut % (Auto) Cancelled Lymph % (Auto) Cancelled [place] % (Auto) Cancelled Eos % (Auto) Cancelled Baso % (Auto) Cancelled Neut # (Auto) Cancelled Lymph # (Auto) Cancelled [place] # (Auto) Cancelled Eos # (Auto) Cancelled Baso # (Auto) Cancelled Absolute Gran (aut o) Cancelled Nucleated RBC % (a uto) Cancelled Nucleated RBCs # Cancelled D-Dimer 1.88 H (0-0.59) ug/mIFE U Sodium (136-145) mmol/L Potassium (3.5-5.1) mmol/L Chloride (98-107) mmol/L Carbon Dioxide (22-29) mmol/L Anion Gap (5-19) BUN (8-23) mg/dL Creatinine (0.5-0.9) mg/dL GFR Calculation Glucose (65-115) mg/dL Calculated Osmolal ity (285-295) mOsm/k g Lactic Acid 1.1 (0.5-2.2) mmol/L Calcium (8.5-10.5) mg/dL Total Bilirubin (0.15-1.2) mg/dL AST (0-32) U/L ALT (0-33) U/L Alkaline Phosphata se (35-105) IU/L C-Reactive Protein (0.0-4.9) mg/L NT-Pro-B Natriuret Pep (0-450) pg/mL Total Protein (6.6-8.7) g/dL Albumin (3.5-5.2) g/dL Globulin (1.3-4.6) g/dL SARS-CoV-2 Ag (Rap id) (Negative) 01/27/21 01/27/21 01/28/21 Range/Units 23:00 23:45 01:40 WBC 5.5 Corrected WBC RBC 4.88 Hgb 14.4 Hct 45.3 MCV 92.8 MCH 29.5 MCHC 31.8 RDW 13.4 Plt Count 189 MPV 10.2 Gran % Neut % (Auto) 70.6 Lymph % (Auto) 10.0 [place] % (Auto) 14.6 Eos % (Auto) 0.0 Baso % (Auto) 0.4 Neut # (Auto) 3.88 Lymph # (Auto) 0.6 L [place] # (Auto) 0.8 Eos # (Auto) 0.0 Baso # (Auto) 0.0 Absolute Gran (aut o) Nucleated RBC % (a uto) 0 Nucleated RBCs # 0.0 D-Dimer (0-0.59) ug/mIFE U Sodium 137 (136-145) mmol/L Potassium 4.0 (3.5-5.1) mmol/L Chloride 100 (98-107) mmol/L Carbon Dioxide 28 (22-29) mmol/L Anion Gap 13.0 (5-19) BUN 22 (8-23) mg/dL Creatinine 0.7 (0.5-0.9) mg/dL GFR Calculation Not Reportable Glucose 99 (65-115) mg/dL Calculated Osmolal ity 287 (285-295) mOsm/k g Lactic Acid (0.5-2.2) mmol/L Calcium 8.6 (8.5-10.5) mg/dL Total Bilirubin 0.7 (0.15-1.2) mg/dL AST 23 (0-32) U/L ALT 15 (0-33) U/L Alkaline Phosphata se 47 (35-105) IU/L C-Reactive Protein 38.9 H (0.0-4.9) mg/L NT-Pro-B Natriuret Pep 282 (0-450) pg/mL Total Protein 6.0 L (6.6-8.7) g/dL Albumin 3.0 L (3.5-5.2) g/dL Globulin 3.0 (1.3-4.6) g/dL SARS-CoV-2 Ag (Rap id) Positive H (Negative) Imaging Data: CXR: Attestation: I personally reviewed and interpreted this imaging study as follows: Radiologist's impression: [id number] [address] XRay Report Signed Patient: Sai Ballard Unit #: [id number] : [id number] Age/Sex: 80 / F ADM Date: 01/27/21 Loc: ER Room/Bed: Attending Dr: Ordering Provider/Ordering MD: Hany Mares MD Date of Service: 01/27/21 Procedure(s): XR chest 1V portable [id number] Accession Number(s): [id number] Report Number: [id number] PROCEDURE INFORMATION: Exam: XR Chest Exam date and time: 01/27/2021 9:03 PM Age: 80 years old Clinical indication: Dyspnea; Additional info: SOB TECHNIQUE: Imaging protocol: XR of the chest. Views: 1 view. COMPARISON: CR XR chest 1V portable [id number] 01/23/2021 2:06 PM FINDINGS: Lungs: There are increased interstitial opacity seen in the lower hemithoraces bilaterally with some consolidation seen in the right lung base, findings compatible with interstitial pneumonia. Pleural spaces: Unremarkable. No pleural effusion. No pneumothorax. Heart/Mediastinum: Unremarkable. No cardiomegaly. Bones/joints: Unremarkable. XR/XR chest 1V portable [id number] IMPRESSION: Bilateral increased interstitial markings in the lower hemithoraces and consolidation seen in the right lung base compatible with a bilateral interstitial pneumonia. Dictated By: Beka Mcgowan MD Signed By: Beka Mcgowan MD Signed Date/Time: 01/27/212309 DD/ 07 COVID Results: SARS-CoV-2 Antigen (Rapid) Positive (Negative) H 01/27/21 23:45 01/27/21 Discharge Plan Discharge Patient Disposition: Admitted As Inpatient Admit Provider: Brett George Clinical Impression: COVID-19, AMS (altered mental status) Condition: Stable Coding Level of Care Code ED Confectionery Drops Machine Operator for Chg Fwd Exam Comprehensive
[2021-01-28] VITALS (9 sets, daily range): BP systolic 134–167; BP diastolic 85–95; PULSE 65–71; RESP 12–18; TEMP 36.8–37.8; O2SAT 90–94
[2021-01-28 00:25] LABS: Alanine Aminotransferase 15 U/L (0-33); Alkaline Phosphatase 47 IU/L (35-105); Blood Urea Nitrogen 22 mg/dL (8-23); C Reactive Protein 38.9 mg/L (0.0-4.9); Calcium 8.6 mg/dL (8.5-10.5); Carbon Dioxide 28 mmol/L (22-29); Chloride 100 mmol/L (98-107); Glucose 99 mg/dL (65-115); NT Pro B Type Natriuretic Pept 282 pg/mL (0-450); Osmolality Calculated 287 mOsm/kg (285-295); Sodium 137 mmol/L (136-145); Total Bilirubin 0.7 mg/dL (0.15-1.2)
[2021-01-28 00:26] LABS: SARS Covid-2 Antigen Positive (Negative)
[2021-01-28 00:27] LABS: Aspartate Amino Transferase 23 U/L (0-32)
[2021-01-28 02:02] LABS: Basophils % 0.4 %; Hematocrit 45.3 % (37.0-47.0); Hemoglobin 14.4 g/dL (11.5-15.3); Lymphocytes # 0.6 10^3/uL (0.8-4.8); Mean Corpuscular HGB Conc 31.8 g/dL (30.0-36.0); Mean Corpuscular Hemoglobin 29.5 pg (28.0-34.0); Mean Corpuscular Volume 92.8 fL (81-99); Mean Platelet Volume 10.2 fL (7.4-10.4); Monocytes # 0.8 10^3/uL (0.2-0.9); Monocytes % 14.6 %; Neutrophils # 3.88 10^3/uL (1.8-7.7); Neutrophils % 70.6 %; Nucleated Red Blood Cells % 0 %; Platelet Count 189 10^3/cmm (130-400); Red Blood Count 4.88 10^6/uL (4.1-5.3); Red Cell Distribution Width 13.4 % (12.1-15.1); White Blood Count 5.5 10^3/uL (4.0-10.0)
[2021-01-28] MEDS: sodium chloride 0.9% 500 ML IV (02:04)
[2021-01-28] MEDS: azithromycin 500 MG in sodium chloride 0.9% 250 ML 250 MG IV (02:05)
[2021-01-28] MEDS: cefTRIAXone 1,000 MG in sodium chloride 0.9% (plus) 50 ML 100 MG IV (02:06)
--- NOTE | 2021-01-28 07:59 | PM.HP ---
Providers/Chief Complaint Admitting Physician: Brett George Primary Care Provider: Concepcion Moralez DO Chief Complaint: COVID+:FATIGUE, TREMORS, SHIVERING, CONFUSION History of Present Illness 80-year-old female with past medical history significant for hypertension, and recent COVID-19 pneumonia was suspected superimposed bacterial pneumonia s/p tx with remdesivir, decadron discharged on xarelto, levaquin who presented to [facility] again today with respiratory distress. Patient was confused and not able to provide history. Laboratory workup on return to hospital showed WBC of 5.5, hemoglobin of 14.4, hematocrit 45.3 and a platelet count of 189. sodium 137, potassium 4.0, chloride 100, bicarb 28, BUN 22 and creatinine of 0.7. Chest x-ray showed bilateral increased interstitial markings in lower hemothorax is and consolidation seen in the right lung base compatible with bilateral interstitial pneumonia. In emergency room patient was started on Rocephin and azithromycin. Cultures were drawn. Review of Systems General: Reports: 10 or more systems reviewed and unremarkable except in HPI and below Medications/Allergies Home Medications Medication Instructions Recorded Confirmed Last Taken Type docusate sodium 100 mg capsule 100 mg PO DAILY #30 cap 01/10/20 01/23/21 Unknown Rx latanoprost (PF) 0.005 % eye drops 1 drop OPHTHALMIC (EYE) .hs #7.5 ml 03/30/20 01/23/21 01/21/21 Rx oxybutynin chloride 10 mg 10 mg PO DAILY #90 tab 12/12/20 01/23/21 01/21/21 Rx tablet,extended release 24 hr potassium chloride 20 mEq 20 meq PO DAILY #90 tab 12/12/20 01/23/21 01/21/21 Rx tablet,extended release(part/cryst) furosemide 40 mg PO DAILY 01/23/21 01/23/21 Unknown History lisinopril 20 mg PO DAILY 01/23/21 01/23/21 01/21/21 History levofloxacin 750 mg PO DAILY 5 Days #5 tab 01/25/21 Unknown Rx nystatin 1 applic TOPICAL BID 14 Days #15 g 01/25/21 Unknown Rx rivaroxaban [Xarelto] 10 mg PO DAILY #21 tab 01/25/21 Unknown Rx Allergies Allergy/AdvReac Type Severity Reaction Status Date / Time No Known Allergies Allergy Verified 01/20/20 09:56 PFSH Acute PFSH: Medical History (Reviewed 01/27/21 @ 23:42 by Leonard Hernandes MD, [facility] [place]) Elevated brain natriuretic peptide (BNP) level Essential hypertension Incontinence Troponin level elevated Surgical History (Reviewed 01/27/21 @ 23:42 by Leonard Hernandes MD, [facility] [place]) H/O knee surgery Family History (Reviewed 01/27/21 @ 23:42 by Leonard Hernandes MD, [facility] [place]) Sister Alzheimer disease Father Heart disease Daughter Thyroid condition Social History (Reviewed 01/27/21 @ 23:42 by Leonard Hernandes MD, [facility] [place]) Smoking and tobacco status: never smoked Alcohol intake: never Household members: family Marital status: / Current occupational status: retired Vitals/I&O/Wt Last Vital Signs Temp 98.5 F 01/28/21 06:01 Pulse 69 01/28/21 06:01 Resp 12 01/28/21 06:01 BP 164/91 01/28/21 06:01 Pulse Ox 90 01/28/21 06:01 01/27/21 01/28/21 01/28/21 22:59 06:59 14:59 Intake Total 800 / 800 Balance 800 / 800 Weight last 48 hrs Weight 86.183 kg Data : 01/28/21 01:40 01/27/21 23:00 Micro: Microbiology 01/28/21 01:40 Blood Culture - Preliminary Blood SPECIMEN COLLECTED A&P Assessment and plan (1) AMS (altered mental status): Status: Acute (2) COVID-19: Status: Acute (3) Pneumonia due to COVID-19 virus: Status: Acute Additional A&P Information patient was recently discharged from the hospital after treatment for COVID-19 pneumonia. She was also discharged on oral antibiotics and anticoagulation including Eliquis 2.5 mg oral b.i.d.. will broaden coverage to include vancomycin and Zosyn. Due to healthcare associated pneumonias. Can likely deescalate based on culture results and clinical course. Repeat labs in a.m.. Attestations Medical Necessity Statement*: Anticipate over 2 midnights stay in hospital for evaluation and treatment of pneumonia require IV antibiotics Time Spent in Patient Care: Greater than 35 minutes Coding Level of Care Code Acute Jewelry Cutter for Chg Fwd Diagnoses AMS (altered mental status) R41.82 COVID-19 U07.1 Pneumonia due to COVID-19 virus U07.1; J12.82
--- NOTE | 2021-01-28 08:15 | PC.NURSE ---
patient alert to self and she knows she is in [place] but doesn't know were at in [place]. patient was admitted on january 23 and discharged. patient denies pain. patient incont of bladder at time of assessment, group underwriter changed blue chux under patient. patient falling asleep during assessment. bed alarm set, call light within reach.
--- NOTE | 2021-01-28 10:38 | PC.NURSE ---
at 0800 pharmacy, registration, ER and at 1000 IT notified that patient is not in the [facility], it states patient is discharged. HAILEE Roldan said they are working on it and will call when it is corrected.
--- NOTE | 2021-01-28 10:39 | PC.NURSE ---
called patient's granddaughter Gabbie [phone] and updated her on patient's condition.
--- NOTE | 2021-01-28 10:56 | PC.NURSE ---
IT called and stated patient is now in the [facility]
[2021-01-28] MEDS: piperacillin-tazobactam 3.375 GM in sodium chloride 0.9% (plus) 50 ML IV ×2 (11:15→20:15)
[2021-01-28] MEDS: vancomycin 1,500 MG/300 ML PIGGYBACK 200 MG IV (11:16)
[2021-01-28] MEDS: pantoprazole DR 40 mg Tablet PO (11:17)
[2021-01-28] MEDS: rivaroxaban 10 mg Tablet PO (11:17)
--- NOTE | 2021-01-28 14:14 | PM.PN ---
Subjective Subjective: Interval history: Patient was seen and examined this morning, she was saturating well on nasal cannula no active chest pain or shortness of breath complaining of diarrhea she was eating Jell-O Vitals/I&O/Wt Last Vital Signs Temp 100.1 F H 01/28/21 11:45 Pulse 65 01/28/21 11:45 Resp 16 01/28/21 11:45 BP 134/92 01/28/21 11:45 Pulse Ox 93 01/28/21 11:45 01/27/21 01/28/21 01/28/21 22:59 06:59 14:59 Intake Total 800 / 800 Balance 800 / 800 Weight last 48 hrs Weight 86.183 kg Physical Exam Narrative: EXAM NARRATIVE: Very pleasant cooperative elderly female Does not look dehydrated or fluid overloaded Saturating well on 2 L nasal cannula no active acute respite distress bilateral breath sound mild rhonchi at the bases Abdomen soft Lower extremity no edema EOMI, PERRLA no Neurological deficit No joint swelling or signs of cellulitis Her room was very warm she has 2 layers of blankets Data : 01/28/21 01:40 01/27/21 23:00 Micro: Microbiology 01/28/21 12:37 Blood Culture - Preliminary Blood SPECIMEN COLLECTED 01/28/21 01:40 Blood Culture - Preliminary Blood SPECIMEN COLLECTED A&P Assessment and plan (1) COVID-19: Status: Acute (2) AMS (altered mental status): Status: Acute (3) Pneumonia due to COVID-19 virus: Status: Acute (4) Elevated d-dimer: Status: Acute (5) CAP (community acquired pneumonia): Status: Acute (6) Essential hypertension: Status: Acute Additional A&P Information Acute hypoxic restaurant failure due to COVID-19 pneumonia I requested procalcitonin level she was recently discharged on Levaquin without any oxygen at the time of discharge she did not qualify as per home O2 evaluation If she is doing well by tomorrow we will discontinue antibiotics Continue Xarelto 10 mg daily she has been taking because of COVID-19 and previous history of venous thrombophlebitis, Currently saturating well on 2-week nasal cannula, she has finished remdesivir and Decadron regimen which I would not continue at this point Rule out hospital-acquired pneumonia Cardiac diet DVT prophylaxis Xarelto Full code Attestations Medical Necessity Statement*: Will need home O2 evaluation Time Spent in Patient Care: 16 - 35 minutes Coding Level of Care Code Acute Golf Club Weighter for Chg Fwd Diagnoses COVID-19 U07.1 AMS (altered mental status) R41.82 Pneumonia due to COVID-19 virus U07.1; J12.82 Elevated d-dimer R79.89 CAP (community acquired pneumonia) J18.9 Essential hypertension I10
[2021-01-28 14:24] LABS: Procalcitonin 0.07 ng/mL (0-0.5)
--- NOTE | 2021-01-28 15:29 | PC.PT ---
PT evaluation on hold today, due to patient having diarrhea, in addition to altered mental status, will reattempt evaluation tomorrow morning
[2021-01-29] VITALS (9 sets, daily range): BP systolic 114–161; BP diastolic 70–97; PULSE 60–79; RESP 14–20; TEMP 36.5–37.8; O2SAT 90–95
[2021-01-29] MEDS: vancomycin 1,500 MG/300 ML PIGGYBACK 200 MG IV (04:33)
[2021-01-29] MEDS: piperacillin-tazobactam 3.375 GM in sodium chloride 0.9% (plus) 50 ML IV ×2 (05:59→16:03)
[2021-01-29 06:12] LABS: Hematocrit 43.7 % (37.0-47.0); Hemoglobin 13.8 g/dL (11.5-15.3); Mean Corpuscular HGB Conc 31.6 g/dL (30.0-36.0); Mean Platelet Volume 10.2 fL (7.4-10.4); Platelet Count 196 10^3/cmm (130-400); Red Cell Distribution Width 13.4 % (12.1-15.1); White Blood Count 5.4 10^3/uL (4.0-10.0)
[2021-01-29 08:43] LABS: Slide Review Slide Review Perform
[2021-01-29 08:51] LABS: Absolute Neutrophil 4.2 10^3/cmm (1.4-6.5); Absolute Segmented Neutrophil 3.9 10/cmm (1.6-7.1); Band Neutrophils Absolute 0.3 10^3/cmm (0.0-1.2); Eosinophils 0 %; Lymphocytes 15 %; Lymphocytes Absolute 0.8 10^3/cmm (1.2-3.4); Monocytes Absolute 0.1 10^3/cmm (0.1-0.6); Platelet Estimate Normal (Normal); Segmented Neutrophils 72 %; Total Cells Counted 100 (0-100)
[2021-01-29] MEDS: lisinopril 20 mg Tablet PO (09:20)
[2021-01-29] MEDS: pantoprazole DR 40 mg Tablet PO (09:20)
[2021-01-29] MEDS: oxybutynin chloride XL 5 MG TABLET 10 MG PO (09:20)
[2021-01-29] MEDS: FUROsemide 40 mg Tablet 20 MG PO (09:20)
[2021-01-29] MEDS: rivaroxaban 10 mg Tablet PO (09:20)
--- NOTE | 2021-01-29 10:23 | PC.NURSE ---
called and updated patient's granddaughter Gabbie Lester [phone] on patient's condition.
--- NOTE | 2021-01-29 16:09 | P.PN_ITS ---
Subjective Subjective: Interval history: Patient examined this morning, she was going to the bathroom with the help of a walker, requiring 2 L nasal cannula for ambulation, did work physical with therapy today Vitals/I&O/Wt Last Vital Signs Temp 98.4 F 01/29/21 11:58 Pulse 68 01/29/21 11:58 Resp 20 H 01/29/21 11:58 BP 151/79 01/29/21 11:58 Pulse Ox 90 01/29/21 11:58 01/29/21 01/29/21 01/29/21 06:59 14:59 22:59 Intake Total 350 / 970 50 / 50 Output Total 200 / 700 Balance 150 / 270 50 / 50 Weight last 48 hrs Weight 86.183 kg Physical Exam Narrative: EXAM NARRATIVE: Patient was trying to get up from bed using a walker to go to the bathroom Requiring 2 L of saline S1-S2 no murmur Abdomen soft nontender Bilateral breath sound without adventitious rhonchi or crackles Patient seems lethargic and fatigued taking time to get up from her bed Able to eat EOMI, PERRLA no neurological deficit Appropriate mood and affect Data : 01/29/21 05:25 01/27/21 23:00 Micro: Microbiology 01/28/21 12:37 Blood Culture - Preliminary Blood NEGATIVE TO DATE 01/28/21 01:40 Blood Culture - Preliminary Blood NEGATIVE TO DATE A&P Assessment and plan (1) COVID-19: Status: Acute (2) AMS (altered mental status): Status: Acute (3) Acute respiratory failure with hypoxia: Status: Acute (4) Pneumonia due to COVID-19 virus: Status: Acute Additional A&P Information Acute hypoxic respiratory failure secondary to COVID-19 pneumonia requiring 2 L Finished remdesivir and Decadron regimen on previous admission Conservative management for now, will request home O2 evaluation, patient encouraged to work with physical therapy, likely will be discharged tomorrow She lives with her granddaughter Discontinue IV antibiotics no indication to keep her on antibiotics she has stayed afebrile, no leukocytosis, she will not need any antibiotics on discharge procalcitonin unremarkable She will be discharged tomorrow Advance diet to cardiac Full code Attestations Medical Necessity Statement*: Anticipating discharge tomorrow Time Spent in Patient Care: 16 - 35 minutes Coding Level of Care Code Acute Flat Machine Cutter for Chg Fwd Diagnoses COVID-19 U07.1 AMS (altered mental status) R41.82 Acute respiratory failure with hypoxia J96.01 Pneumonia due to COVID-19 virus U07.1; J12.82
[2021-01-29] MEDS: acetaminophen 325 mg Tablet 650 MG PO (16:25)
[2021-01-30] VITALS (8 sets, daily range): BP systolic 114–132; BP diastolic 67–82; PULSE 60–80; RESP 16–20; TEMP 36.2–37.1; O2SAT 85–96
[2021-01-30] MEDS: oxybutynin chloride XL 5 MG TABLET 10 MG PO (09:20)
[2021-01-30] MEDS: lisinopril 20 mg Tablet PO (09:21)
[2021-01-30] MEDS: FUROsemide 40 mg Tablet 20 MG PO (09:21)
[2021-01-30] MEDS: rivaroxaban 10 mg Tablet PO (09:21)
[2021-01-30] MEDS: pantoprazole DR 40 mg Tablet PO (09:21)
--- NOTE | 2021-01-30 10:26 | PC.NURSE ---
Patient uses nystatin cream under abdominal folds. lyric writer notified Dr Shelton.
--- NOTE | 2021-01-30 10:31 | PC.NURSE ---
Per Dr Shelton, patient is being discharged today. no nystatin order at this time.
--- NOTE | 2021-01-30 12:39 | PM.DCS ---
Discharge Providers Date of Admission: 01/28/21 06:33 Date of Discharge: January 30, 2021 Attending Provider at Admission: Brett George Attending Provider at Discharge: Brett George Primary Care Provider: Concepcion Moralez DO Diagnoses at Discharge Discharge Diagnosis (1) COVID-19: Status: Acute (2) AMS (altered mental status): Status: Acute (3) Acute respiratory failure with hypoxia: Status: Acute (4) Pneumonia due to COVID-19 virus: Status: Acute Reason for Visit Reason for Visit: COVID+:FATIGUE, TREMORS, SHIVERING, CONFUSION Hospital Course Hospital Course Ms. Ballard who was recently discharged from the hospital after finishing Decadron and remdesivir regimen of COVID-19 pneumonia, at that time she did not qualify for oxygen at the time of discharge presented to the hospital with worsening respiratory distress. She was initially put on vancomycin and Zosyn with concern of superimposed bacterial infection however her clinical status improved and broad-spectrum antibiotics were discontinued, she stayed afebrile no signs of sepsis, procalcitonin unremarkable. She qualified for 2 L of oxygen at rest and 2 L on ambulation, she will be discharged without any antibiotics. Patient does not want to go any residential requesting to be discharged home to stay with her granddaughter. 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 No recent PE. Physical Exam Narrative: EXAM NARRATIVE: Awake alert oriented x3 GCS 15 S1, S2 Abdomen soft Fatigue and lethargic Uses a walker for ambulation Abdomen soft No acute audible stridor or wheezing No joint swelling Discharge Data Data Completed and Pending: Completed Studies During Hospitalization Category Date Time Status XR chest 1V stella ble 30142 Stat Exams 01/27/21 21:03 Completed Pending at discharge Category Date Time Status Blood Culture Sta t Lab 01/28/21 12:37 Results Vancomycin Trough Timed Lab 01/30/21 16:00 Ordered Vitals: Last Vital Signs Temp 97.7 F 01/30/21 12:00 Pulse 69 01/30/21 12:00 Resp 20 H 01/30/21 12:00 BP 126/82 01/30/21 12:00 Pulse Ox 92 01/30/21 12:00 Discharge Plan Discharge Patient Disposition: Home Condition: Stable Prescriptions: Continued docusate sodium [Colace] 100 mg capsule 100 mg PO DAILY Qty: 30 RF: 3 oxybutynin chloride 10 mg tablet extended release 24hr 10 mg PO DAILY Qty: 90 RF: 0 potassium chloride [Klor-Con M20] 20 mEq tablet,ER particles/crystals 20 meq PO DAILY Qty: 90 RF: 0 furosemide 40 mg tablet 40 mg PO DAILY RF: 0 lisinopril 20 mg tablet 20 mg PO DAILY RF: 0 nystatin 100,000 unit/gram cream 1 applic topical BID 14 Days Qty: 15 RF: 1 Vitamin C 250 mg Tablet 250 mg PO DAILY RF: 0 vitamin B complex Tablet 1 tab PO DAILY RF: 0 niacin 250 mg Tablet 250 mg PO DAILY RF: 0 lysine 500 mg Tablet 500 mg PO DAILY RF: 0 vitamin E 200 unit Tablet 200 unit PO DAILY RF: 0 biotin 500 mcg Capsule 20 mg PO DAILY RF: 0 Vitamin D3 125 mcg (5,000 unit) Tablet 125 mcg PO DAILY RF: 0 Xarelto 10 mg tablet 10 mg PO DAILY RF: 0 calcium carb-D3-mag ox-zinc ox 333 mg-133 unit -133 mg-5 mg Tablet 1 tab PO DAILY RF: 0 turmeric 400 mg Capsule 1 mg PO DAILY RF: 0 latanoprost (PF) 0.005 % drops 1 drop ophthalmic (eye) BEDTIME RF: 0 Discontinued levofloxacin 750 mg tablet 750 mg PO DAILY 5 Days Qty: 5 RF: 0 Discharge Orders: Discharge Order (Routine); Ordered 01/30/21 Ordered By: Darryn Shelton Other Ambulatory Orders: DME: Oxygen (Order) Location: None Selected Ordered By: Darryn Shelton Referrals: Concepcion Moralez DO [Primary Care Provider] - Discharge Diet: Diabetic Discharge Activity: Increase activity as tolerated and Use walker/crutches as instructed Patient Instructions: Opioid Safety Discharge Attestations Time Spent in Discharge Care*: less than 30 min Quality Metrics Clinical Quality Measures During this hospital stay, did patient experience: None Coding Level of Care Code Acute Chg [facility] note Diagnoses COVID-19 U07.1 AMS (altered mental status) R41.82 Acute respiratory failure with hypoxia J96.01 Pneumonia due to COVID-19 virus U07.1; J12.82
--- NOTE | 2021-01-30 14:06 | PC.NURSE ---
SHONDA Pérez said patient will have to pay for ride home. [facility] under[facility] called patient's granddaughter Gabbie and let her know about ride. Gabbie asked how much is the bill going to be. Ski Guide transferred call to SS.
--- NOTE | 2021-01-30 14:25 | PC.NURSE ---
discharge instructions given to patient and patient verbalized understanding of instructions. patient waiting on home oxygen to be delivered and then she will have ride home.
== END 2021-01-30 15:46 | disposition home or self-care (01) | DRG 177 ==
LOC: ER 01-28 03:00 → MEDSURG 01-28 06:47
PROVIDERS: Family Medicine; Internal Medicine; Admitting Provider Hospitalist; Emergency Provider Emergency Medicine; PCP Family Medicine; Visit Provider Hospitalist
DX: U07.1 COVID-19 (principal); J12.82 Pneumonia due to coronavirus disease 2019; J15.9 Unspecified bacterial pneumonia; J96.01 Acute respiratory failure with hypoxia; I10 Essential (primary) hypertension; R41.82 Altered mental status, unspecified; Z79.01 Long term (current) use of anticoagulants
CPT/HCPCS: 71045; 80053; 83605; 83880; 84145; 85007; 85025; 85378; 86140; 87040; 87426; 93005; 96365; 96367; 97161; 97530; 99285; J0456; J0696; J2543; J3370; J7040; J7050

== ENCOUNTER 2021-09-13 12:26 | Outpatient (CLI) | payer MEDICARE, SELFPAY ==
--- NOTE | 2021-09-13 13:16 | USCV_ITS ---
Sia Ballard Age: 81 Gender: F : 1940 Exam Date: 09/13/2021 13:45 Ordering Phys: Jose Daniel Soto CHANGE MANAGEMENT ANALYST CHANGE MANAGEMENT ANALYST Technologist: DANIEL Exam Location: [facility] – [place] Indication: Essential Hypertension BP: 180 / 100 HR: 66 Rhythm: Sinus Technical Quality: Adequate MEASUREMENTS (Male / Female) Normal Values 2D ECHO LV Diastolic Diameter PLAX 3.6 cm 4.2 - 5.9 / 3.9 - 5.3 cm LV Systolic Diameter PLAX 2.4 cm IVS Diastolic Thickness 1.3 cm 0.6 - 1.0 / 0.6 - 0.9 cm IVS Systolic Thickness 1.1 cm LVPW Diastolic Thickness 1.2 cm 0.6 - 1.0 / 0.6 - 0.9 cm LVPW Systolic Thickness 1.4 cm LVOT Diameter 2.1 cm LV Ejection Fraction 2D Teich 62.9 % LV Ejection Fraction MOD 2C 69.9 % LV Ejection Fraction 2C AL 69.0 % LA Diameter 2.5 cm Aorta at Sinotubular Diameter 2.8 cm M-MODE Aortic Annulus Diameter 3.9 cm LA Ao Ratio MM 0.6 MV E Point Septal Separation 0.4 cm DOPPLER AV Peak Velocity 150.0 cm/s LVOT Peak Velocity 121.0 cm/s AV Area Cont Eq vti 2.7 cm squared AV Area Cont Eq pk 2.7 cm squared MV Area PHT 2.1 cm squared Mitral E to A Ratio 0.6 MV E' Velocity 41.0 cm/s Mitral E to MV E' Ratio 16.0 Mitral E to LV E' Lateral Ratio 16.6 Mitral E to LV E' Septal Ratio 15.3 TR Peak Velocity 239.0 cm/s TR Peak Gradient 22.8 mmHg TV Peak E Velocity 51.0 cm/s Right Atrial Pressure 8.0 mmHg Pulmonary Artery Systolic Pressu 30.8 mmHg PV Peak Velocity 100.0 cm/s RV Acceleration Time 0.1 s RV Ejection Time 0.2 s RV AcT/ET 0.4 FINDINGS Left Ventricle Normal left ventricular size. LV systolic function is normal with EF of 55-60%. No regional wall motion abnormalities. Grade 1 diastolic dysfunction Right Ventricle The right ventricle is normal in size and function. Right Atrium The right atrium is normal in size. Left Atrium The left atrium is normal in size. Mitral Valve Mitral annular calcification without significant stenosis or prolapse. There is trace mitral regurgitation. Aortic Valve Aortic valve is thickened without stenosis. There is no aortic regurgitation. Tricuspid Valve Structurally normal tricuspid valve without significant stenosis. Trace tricuspid regurgitation. Insufficient TR jet to calculate RVSP Pulmonic Valve Grossly normal. There is trace pulmonic regurgitation. Pericardium Normal pericardium without effusion. Aorta Normal ascending aorta dimension. CONCLUSIONS Technically limited quality echocardiogram because of poor ultrasonic windows LV systolic function is normal with EF of 55-60% Grade 1 diastolic dysfunction Mitral annular calcification without significant stenosis or prolapse. There is trace mitral regurgitation. Trace pulmonic regurgitation Compared to prior echocardiogram from 01/24/2021, no significant changes are seen Ba Kamara MD (Electronically Signed) Final Date: 14 September 2021 16:26 S
== END 2021-09-13 12:27 | disposition home or self-care (01) ==
LOC: RAD 12:28
PROVIDERS: PCP Registered Nurse; Visit Provider Registered Nurse
DX: I10 Essential (primary) hypertension (principal); R60.0 Localized edema; I34.0 Nonrheumatic mitral (valve) insufficiency
CPT/HCPCS: 93306